=== PATIENT | female | born 2000 | race African-American/Black ===

== ENCOUNTER 2019-09-02 11:03 | Outpatient (RCR) | payer OTHER, SELFPAY ==
[2019-09-02 11:45] VITALS: BP 103/78; PULSE 92
== END 2019-12-01 23:59 | disposition home or self-care (01) ==
LOC: ANHOBOP 11:03
PROVIDERS: PCP Emergency Medicine; Visit Provider Obstetrics & Gynecology
DX: O36.8130 Decreased fetal movements, third trimester, not applicable or unspecified (principal); Z3A.32 32 weeks gestation of pregnancy
CPT/HCPCS: 59025

== ENCOUNTER 2020-04-25 23:18 | Emergency (ER) | payer OTHER, SELFPAY ==
--- NOTE | ~2020-04-25 | XR_ITS ---
EXAMINATION: XR chest 2V EXAM DATE: 04/26/2020 00:43 INDICATION: Chest pain and shortness of breath. TECHNIQUE: Frontal and lateral projections of the chest obtained and reviewed. Comparison is made to prior examination from 10/08/2017. FINDINGS: The lungs are clear. There are no pleural effusions. The cardiomediastinal silhouette is within normal limits. There is no pneumothorax suspected. The bones and soft tissues are unremarkab le. IMPRESSION: Normal chest x-ray exam. Reviewed, dictated and finalized at location A. IMPRESSION: Normal chest x-ray exam.
[2020-04-25 23:20] VITALS: BP 132/57; PULSE 71; RESP 19; TEMP 36.5; O2SAT 100
--- NOTE | 2020-04-25 23:32 | ECG_ITS ---
Measurements Intervals [place] Rate: 84 P: 56 OK: 160 QRS: 42 QRSD: 89 T: 35 QT: 368 QTc: 435 Interpretive Statements SINUS RHYTHM NORMAL ECG Electronically Signed On 04-26-2020 6:52:46 CDT by Keven Medina D.O.
[2020-04-25 23:33] VITALS: BP 132/72; PULSE 78; RESP 18; O2SAT 99
--- NOTE | 2020-04-26 00:02 | ED.CHESTPAIN ---
HPI - Chest Pain General Chief Complaint: Chest Pain Stated Complaint: chest pain Time Seen by Provider: 04/25/20 23:32 History of Present Illness HPI narrative: Sharp stabbing chest pain with mild SOB this evening. No fever, cough, palpitations. She says that she has never had chest pain before, but on review of her chart she has been seen here twice with similar complaints. Related Data Home Medications Medication Instructions Recorded Confirmed No Home Medications 04/25/20 04/25/20 Allergies Allergy/AdvReac Type Severity Reaction Status Date / Time No Known Allergies Allergy Verified 04/25/20 23:28 Review of Systems Review of Systems: All systems reviewed & are unremarkable except as noted in HPI and below Constitutional: Constitutional: Denies fever(s) ENT: Denies sore throat Cardiovascular: Cardiovascular: Reports chest pain Respiratory: Respiratory: Denies cough, Reports dyspnea and Denies wheezing Gastrointestinal: Gastrointestinal: Denies abdominal pain, Denies nausea and Denies vomiting Musculoskeletal: Musculoskeletal: Denies back pain Neurologic: Denies weakness PMFSH Social History Social History Gender identity (if verbalized by the patient): Female Exam Const: General: healthy appearing, no acute distress and alert Orientation/consciousness: patient oriented x3 HENMT: Head: normal to inspection Neck: Neck: normal visual inspection and no lymphadenopathy Chest: Chest palpation & inspection: no tenderness Resp: Effort & Inspection: normal respiratory effort Auscultation: clear to auscultation bilaterally, no rales, no rhonchi and no wheezes Cardio: Jugular venous distension: no JVD Rate: regular rate Rhythm: regular rhythm Heart sounds: no murmurs GI: Inspection: non-distended GI Palp: Yes Soft to palpation and No Tenderness to palpation present (GI) Skin: General skin exam: normal color Neuro: General: patient oriented x3 and moves all extremities Speech: normal speech Extrem: General: no edema Psych: Appearance: well kempt Affect: normal affect Course Vital Signs Vital signs: Vital Signs Temperature 36.5 C 04/25/20 23:20 Pulse Rate 71 04/25/20 23:20 Respiratory Rate 19 04/25/20 23:20 Blood Pressure 132/57 L 04/25/20 23:20 Pulse Oximetry 100 04/25/20 23:20 Temperature 36.5 C 04/25/20 23:20 Pulse Rate 78 04/26/20 01:08 Respiratory Rate 16 04/26/20 01:08 Blood Pressure 121/77 04/26/20 01:08 Pulse Oximetry 100 04/26/20 01:08 MDM - Chest Pain MDM Narrative Medical decision making narrative: Chest x-ray clear. EKG normal. Low risk for any serious cause of chest pain. vitals normal. Discharge Plan Discharge Clinical Impression: Atypical chest pain Patient Disposition: Home, Self-Care Condition: Stable Instructions: Chest Pain (ED) Prescriptions: No Action No Home Medications RF: 0 Follow-up/Referrals: Ricardo Horowitz MD [Primary Care Provider] - Discharge Date/Time: 04/26/20 01:20
[2020-04-26 01:08] VITALS: BP 121/77; PULSE 78; RESP 16; O2SAT 100
== END 2020-04-26 01:20 | disposition home or self-care (01) ==
PROVIDERS: Emergency Provider Emergency Medicine; PCP Emergency Medicine
DX: R07.89 Other chest pain (principal)
CPT/HCPCS: 71046; 93005; 99283

== ENCOUNTER 2020-09-07 00:08 | Emergency (ER) | payer OTHER, SELFPAY ==
--- NOTE | ~2020-09-07 | CT_ITS ---
EXAMINATION: CT abdomen pelvis w con DATE: 09/07/2020 02:37 INDICATION: Left upper abdominal pain. TECHNIQUE: Computed tomography (CT) of the abdomen and pelvis was performed with 100 mL Omnipaque 350 intravenous contrast. Automated exposure control and iterative reconstruction technique were employe d. The dose-length product was 1547.35 mGy-cm. COMPARISON: None. FINDINGS: The visualized portions of the lung bases are clear without pneumonia or pleural effusion. The heart size is normal. No pericardial effusion. The liver demonstrates focal steatosis adjacent to the falciform ligament. The spleen, pancreas, adrenal glands, and left kidney are normal. There is a 7 mm mass of fat in right kidney, consistent with an angiomyolipoma. There are no dilated loops of b owel. The appendix is normal. There are no pathologically enlarged lymph nodes. There is no free intr aperitoneal fluid. There is mild lumbar spondylosis. IMPRESSION: 1. No etiology for the patient's symptoms. Reviewed, dictated and finalized at location B. NTOLOGY AIDE
[2020-09-07 00:13] VITALS: BP 127/77; PULSE 89; RESP 20; TEMP 35.7; O2SAT 100
[2020-09-07 00:21] VITALS: BP 127/77; PULSE 89; RESP 20; TEMP 35.7; O2SAT 100
[2020-09-07 00:41] LABS: Basophils Percent Auto 0.4 % (0.2-1.2); Eosinophils Absolute Auto 0.1 K/mm3 (0-0.3); Eosinophils Percent Auto 1.3 % (0-4.4); Hematocrit 43.1 % (37.0-47.0); Hemoglobin 13.8 g/dL (12.0-15.0); Immature Granulocyte Absolute 0.02 K/mm3 (0.00-0.031); Immature Granulocyte Percent A 0.3 % (0-0.5); Lymphocytes Absolute Auto 3.23 K/mm3 (0.9-3.2); Lymphocytes Percent Auto 42.7 % (18.3-44.2); Mean Corpuscular Hemoglobin 29.2 pg (26-34); Mean Corpuscular Volume 91.3 fl (80-100); Mean Platelet Volume 8.6 fl (7.4-10.4); Monocytes Absolute Auto 0.5 K/mm3 (0.1-0.6); Monocytes Percent Auto 6.2 % (2.6-8.5); Neutrophils Absolute Auto 3.7 K/mm3 (1.3-6.7); Neutrophils Percent Auto 49.1 % (45.5-73.1); Platelet Count Result 331 k/mm3 (150-375); Red Blood Count 4.72 M/mm3 (4.2-5.4); Red Cell Distribution Width 11.8 % (11.5-14.5); White Blood Count 7.6 K/mm3 (4.5-10.0)
[2020-09-07 00:57] LABS: Alanine Aminotransferase 15 U/L (4-35); Albumin Level 4.2 g/dL (3.5-5.1); Alkaline Phosphatase 73 U/L (38-126); Anion Gap 6 mmol/L (8-16); Aspartate Amino Transferase 19 U/L (14-36); Bilirubin,Total 0.4 mg/dL (0.2-1.3); Blood Urea Nitrogen 10 mg/dL (7-17); Calcium 9.5 mg/dL (8.4-10.2); Carbon Dioxide 31 mmol/L (22-30); Chloride 104 mmol/L (98-107); Estimated CRCL calculation 133 ml/min; Estimated Glomerular Filt Rate > 60; Glucose 90 mg/dL (65-105); Lipase 30 U/L (23-300); Potassium 3.5 mmol/L (3.4-5.0); Sodium 141 mmol/L (137-145)
[2020-09-07 01:49] LABS: Add Urine Microscopic? YES; Appearance Urine Clear (Clear); Bacteria Urine Trace /hpf; Bilirubin Urine Negative (Negative); Blood Urine Negative (Negative); Color Urine Yellow (Yellow); Glucose Urine UA Negative (Negative); Ketones Urine Negative (Negative); Leukocyte Esterase Ur Negative LEU/UL (Negative); Mucus Urine Rare /lpf; Nitrate Urine Negative (Negative); Protein Urine 1+ mg/dL (Negative); RBC Urine 0-2 /hpf (0-2); Squamous Epithelial Cell Urine Many /hpf (Few); WBC Urine 0-3 /hpf
--- NOTE | 2020-09-07 01:51 | ED.ABDPAIN ---
HPI - Abdominal Pain General Chief Complaint: Abdominal Pain Stated Complaint: left abd pain Time Seen by Provider: 09/07/20 00:12 Source: patient Mode of arrival: ambulatory Limitations: no limitations History of Present Illness HPI narrative: This patient is a 20 year old female who presents for evaluation of left upper abdominal pain. She states this pain has been constant. She has not taken anything for her pain. She reports her pain feels like contractions occasionally. She denies urinary symptoms. She denies sob, cough or fever. She denies nausea, vomiting or diarrhea. Related Data Allergies Allergy/AdvReac Type Severity Reaction Status Date / Time No Known Allergies Allergy Verified 09/07/20 00:09 Review of Systems Review of Systems: All systems reviewed & are unremarkable except as noted in HPI and below PMFSH Past Medical History Medical History (Updated 09/07/20 @ 03:16 by Marizol Byrne MD) Patient denies medical problems Social History Social History (Updated 09/07/20 @ 02:45 by Marizol Byrne MD) Smoking status: Current every day smoker Gender identity (if verbalized by the patient): Female Exam Const: General: no acute distress and alert Nutritional Appearance: obese Orientation/consciousness: patient oriented x3 Eyes: EOM: EOMs intact bilaterally Resp: Effort & Inspection: normal respiratory effort and no use of accessory muscles Auscultation: clear to auscultation bilaterally Cardio: Rate: regular rate Rhythm: regular rhythm Heart sounds: no murmurs GI: GI Palp: Yes Soft to palpation, Yes Tenderness to palpation present (GI) and No Guarding due to palpation present (GI) Auscultation: normal bowel sounds Skin: General skin exam: normal color Rashes: no rashes Neuro: General: patient oriented x3 and moves all extremities Extrem: General: normal to inspection Course Reevaluation(s) Reevaluation #1: I discussed with patient that labs and CT were unremarkable. She has not complaints. Date: 09/07/20 Time: 03:14 Vital Signs Vital signs: Vital Signs Temperature 96.3 F L 09/07/20 00:13 Pulse Rate 89 09/07/20 00:13 Respiratory Rate 20 09/07/20 00:13 Blood Pressure 127/77 09/07/20 00:13 Pulse Oximetry 100 09/07/20 00:13 Temperature 97.5 F L 09/07/20 03:21 Pulse Rate 82 09/07/20 03:21 Respiratory Rate 16 09/07/20 03:21 Blood Pressure 124/79 09/07/20 03:21 Pulse Oximetry 100 09/07/20 03:21 MDM - Abdominal Pain Lab Data Attestation: I reviewed the patient's lab results. Result diagrams: 09/07/20 00:34 09/07/20 00:34 Labs: Lab Results 09/07/20 09/07/20 09/07/20 Range/Units 00:34 00:34 01:17 WBC 7.6 (4.5-10.0) K/mm3 RBC 4.72 (4.2-5.4) M/mm3 Hgb 13.8 (12.0-15.0) g/dL Hct 43.1 (37.0-47.0) % MCV 91.3 (80-100) fl MCH 29.2 (26-34) pg MCHC 32.0 (32-36) g/dl RDW 11.8 (11.5-14.5) % Plt Count 331 (150-375) k/mm3 MPV 8.6 (7.4-10.4) fl Immature Gran % (Auto) 0.3 (0-0.5) % Neut % (Auto) 49.1 (45.5-73.1) % Lymph % (Auto) 42.7 (18.3-44.2) % [place] % (Auto) 6.2 (2.6-8.5) % Eos % (Auto) 1.3 (0-4.4) % Baso % (Auto) 0.4 (0.2-1.2) % Lymph # (Auto) 3.23 H (0.9-3.2) K/mm3 [place] # (Auto) 0.5 (0.1-0.6) K/mm3 Eos # (Auto) 0.1 (0-0.3) K/mm3 Baso # (Auto) 0.0 (0.0-0.1) K/mm3 Abs Immat Gran (auto) 0.02 (0.00-0.031) K/mm3 Absolute Neuts (auto) 3.7 (1.3-6.7) K/mm3 Absolute Nucleated RBC 0.0 (0.0-0.012) K/mm3 Nucleated RBC % 0.0 (0.0-0.2) % Sodium 141 (137-145) mmol/L Potassium 3.5 (3.4-5.0) mmol/L Chloride 104 (98-107) mmol/L Carbon Dioxide 31 H (22-30) mmol/L Anion Gap 6 L (8-16) mmol/L BUN 10 (7-17) mg/dL Creatinine 0.80 (0.7-1.0) mg/dL Estim Creat Clear Calc 133 ml/min Estimated GFR > 60 (59 - ) Glucose 90 (65-105) mg/dL Calcium 9.5
[2020-09-07] MEDS: KETOROLAC 30 MG/ML VIAL (*BKC) IV PUSH (02:44)
[2020-09-07 03:21] VITALS: BP 124/79; PULSE 82; RESP 16; TEMP 36.4; O2SAT 100
== END 2020-09-07 03:23 | disposition home or self-care (01) ==
PROVIDERS: Emergency Provider General Practice; PCP Emergency Medicine
DX: R10.12 Left upper quadrant pain (principal); F17.200 Nicotine dependence, unspecified, uncomplicated
CPT/HCPCS: 36415; 74177; 80053; 81001; 81025; 83690; 85025; 96374; 99284; J1885; Q9967

== ENCOUNTER 2020-10-04 09:34 | Outpatient (CLI) | payer OTHER, SELFPAY ==
--- NOTE | ~2020-10-04 | XR_ITS ---
EXAMINATION: XR UGIAC wo kub DATE: 10/04/2020 10:46 INDICATION: Left flank pain. Abdomen pain. TECHNIQUE: Thick barium contrast with gas effervescent crystals were administered orally. Fluoroscop ic images of the esophagus, stomach, and proximal duodenum were obtained in various projections. The reafter, overhead images of the abdomen were performed. 1.1 minutes of fluroscopy. DAP 72. 63 images. FINDINGS: No prior studies for comparison. The esophagus is normal in caliber, without mucosal lesions or strictures. There is normal esophagea l peristalsis. There is no hiatal hernia. No gastroesophageal reflux witnessed during the course of the study. The gastric folds are normal. The proximal duodenum is also normal in appearance. IMPRESSION: 1. Normal upper GI study. Reviewed, dictated and finalized at location A. NSE TRAVEL ADMINISTRATOR IMPRESSION: 1. Normal upper GI study.
== END 2020-10-04 09:35 | disposition home or self-care (01) ==
PROVIDERS: PCP Emergency Medicine; Visit Provider Emergency Medicine
DX: R10.9 Unspecified abdominal pain (principal)
CPT/HCPCS: 74246

== ENCOUNTER 2020-11-08 19:14 | Emergency (ER) | payer OTHER, SELFPAY ==
--- NOTE | ~2020-11-08 | XR_ITS ---
EXAMINATION: XR elbow RT min 3V DATE: 11/08/2020 19:47 INDICATION: Generalized right elbow pain post fall TECHNIQUE: Anteroposterior, two oblique and lateral views of the right elbow were obtained. COMPARISON: None. FINDINGS: Alignment is normal. Subtle buckling of the cortex at the proximal radial head neck junction consiste nt with nondisplaced minimally impacted fracture. Joint spaces are normal. No evident joint effusion. Soft tissues are unremarkable. IMPRESSION: 1. Nondisplaced extra-articular fracture at the head neck junction of the proximal right radius. Reviewed, dictated and finalized at location A. ICE CASE MANAGER IMPRESSION: 1. Nondisplaced extra-articular fracture at the head neck junction of the proxi mal right radius.
[2020-11-08 19:29] VITALS: BP 165/86; PULSE 80; RESP 16; TEMP 36.6; O2SAT 99
--- NOTE | 2020-11-08 20:34 | ED.GENADULT ---
HPI - General Adult General Chief complaint: Extremity Injury, Upper Stated complaint: right elbow injury Time Seen by Provider: 11/08/20 19:17 Source: patient Mode of arrival: ambulatory Limitations: no limitations History of Present Illness HPI narrative: Patient presents with chief complaint of pain to the right elbow that began prior to arrival after slipping on ice in the [employer] parking lot and falling hitting the elbow. Patient denies any other areas of injury. Patient prior fractures. Related Data Allergies Allergy/AdvReac Type Severity Reaction Status Date / Time No Known Allergies Allergy Verified 09/07/20 00:09 Review of Systems Review of Systems: Narrative: CONSTITUTIONAL: Denies fever, chills, or sweats. EYES: Denies visual changes, redness, or discharge. ENT: Denies rhinorrhea, congestion, sore throat, or otalgia. CARDIOVASCULAR: Denies chest pain, palpitations, or edema. RESPIRATORY: Denies cough or dyspnea. GASTROINTESTINAL: Denies abdominal pain, nausea, vomiting, or diarrhea. GENITOURINARY: Denies dysuria or hematuria. SKIN: Denies rash or itching. MUSCULOSKELETAL: Reports right elbow pain denies back pain, joint pain, or myalgia. NEUROLOGIC: Denies headache, numbness, dizziness, or weakness. PSYCHIATRIC: Denies anxiety or depression. [facility] Past Medical History Medical History (Updated 11/08/20 @ 20:31 by Sharon Heath PA-C) Patient denies medical problems Social History Social History (Updated 09/07/20 @ 02:45 by Marizol Byrne MD) Smoking status: Current every day smoker Gender identity (if verbalized by the patient): Female Exam Narrative: Exam Narrative: GENERAL: Well-appearing, well-nourished, and in no acute distress. HEAD: Normocephalic, atraumatic. EYES: PERRLA and EOMI. NECK: Supple. No adenopathy or masses. CHEST: Clear to auscultation. No respiratory distress. No wheezes rales or rhonchi HEART: Regular rate and rhythm. EXTREMITIES: Patient is able to flex and extend the elbow but it is uncomfortable. Patient reports pain with supination and pronation. Patient has pain with palpation over the radial head. No lacerations, ecchymosis or erythema noted. Sensation and range of motion intact distally. Cap refill intact distally. No tenderness proximally or distally. SKIN: Warm, dry, no rash. NEURO: No focal deficits. Alert and oriented x3. PSYCH: Normal mood and affect. Course Vital Signs Vital signs: Vital Signs Temperature 98 F 11/08/20 19:29 Pulse Rate 80 11/08/20 19:29 Respiratory Rate 16 11/08/20 19:29 Blood Pressure 165/86 H 11/08/20 19:29 Pulse Oximetry 99 11/08/20 19:29 Temperature 98 F 11/08/20 19:29 Pulse Rate 80 11/08/20 19:29 Respiratory Rate 16 11/08/20 19:29 Blood Pressure 165/86 H 11/08/20 19:29 Pulse Oximetry 99 11/08/20 19:29 Procedures Orthopedic Splinting/Casting Injury #1: Side: right Upper Extremity Injury Location: elbow OCL: long arm Pre-Procedure Neuro Vascular Exam: normal Post-Procedure Neuro Vascular Exam: normal Other Orthopedic Equipment: other (Sling) Medical Decision Making MDM Narrative Medical decision making narrative: Discussed with patient the need to wear splint and follow-up with beauty specialist for further evaluation and management. 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 Patient's pain is minimal by limiting range of motion. Patient instructed to take Tylenol or Motrin for discomfort. Patient denies any other symptoms or concerns. Differential Diagnosis Differential Diagnosis: Fracture, sprain, strain Vital Signs Vital Signs: Vital Signs Temperature 98 F 11/08/20 19:29 Pulse Rate 80 11/08/20 19:29 Respiratory Rate 16 11/08/20 19:29 Blood Pressure 165/86 H 11/08/20 19:29 Pulse Oximetry 99 11/08/20 19:29 Temperature 98 F 11/08/20 19
[2020-11-08 21:13] VITALS: BP 143/76; PULSE 86; RESP 16; O2SAT 97
== END 2020-11-08 21:13 | disposition home or self-care (01) ==
PROVIDERS: Emergency Provider Emergency Medicine; PCP Emergency Medicine
DX: S52.124A Nondisplaced fracture of head of right radius, initial encounter for closed fracture (principal); W00.0XXA Fall on same level due to ice and snow, initial encounter
CPT/HCPCS: 29105; 73080; 99284; A4565

== ENCOUNTER 2021-01-17 11:36 | Emergency (ER) | payer OTHER, SELFPAY ==
[2021-01-17 11:42] VITALS: BP 115/53; PULSE 98; RESP 18; TEMP 37.2; O2SAT 99
--- NOTE | 2021-01-17 12:28 | ED.GENADULT ---
HPI - General Adult General Chief complaint: Upper Respiratory Infection Stated complaint: sinus infection/neg covid Time Seen by Provider: 01/17/21 12:24 History of Present Illness HPI narrative: Patient is a 20-year-old female who comes to the emergency room today complaining of a headache and chills. Patient reports that the last 3 days she has had a generalized constant headache that gets worse with loud noises. Admits to photophobia as well. Admits to having cold sweats, no known or documented fevers. Otherwise denies any sinus congestion, sore throat, cough. She admits to previous history of similar headaches but none this severe. She had a rapid COVID-19 test this morning and it was negative. Unknown if it is being sent off for culture or not. Denies any possibility of . No other medical conditions. Related Data Allergies Allergy/AdvReac Type Severity Reaction Status Date / Time No Known Allergies Allergy Verified 01/17/21 11:44 Review of Systems Constitutional: Constitutional: Reports as per HPI, Reports chills, Denies fever(s) and Denies weakness ENT: Reports as per HPI Cardiovascular: Cardiovascular: Denies chest pain, Denies edema, Denies leg edema, Denies dyspnea and Denies orthopnea Respiratory: Respiratory: Denies cough and Denies dyspnea Gastrointestinal: Gastrointestinal: Denies abdominal pain, Denies constipation, Denies diarrhea, Denies nausea and Denies vomiting Musculoskeletal: Musculoskeletal: Denies abnormal gait, Denies back pain, Denies numbness and Denies tingling Neurologic: Denies Abnormal speech present, Denies abnormal gait, Reports headache(s), Denies numbness, Denies tingling and Denies weakness Psychiatric: Psychiatric: Denies homicidal ideation and Denies suicidal ideation [facility] Past Medical History Medical History Patient denies medical problems Social History Social History Smoking status: Never smoker Alcohol intake: never Substance use type: does not use Gender identity (if verbalized by the patient): Female Exam Const: General: cooperative, healthy appearing, no acute distress, well developed, alert, awake and Physically active Orientation/consciousness: patient oriented x3 Other: Pleasant, cooperative, uncomfortable appearing HENMT: Head: normal to inspection, normocephalic and atraumatic Ears: external ears normal General nose exam: Normal external nose present Face and sinus: sinus tenderness and Facial tenderness on exam of face and sinuses Mouth: Yes Normal oral and palatal mucosa present Throat: posterior oropharynx normal Other: Tender to palpate over bilateral maxillary and frontal sinuses. Tender to palpate over entire head. Nasal mucosal edema bilaterally. Oropharynx is clear. Both TMs are clear. Mastoids are normal. Neck is nontender to palpate, full range of motion of C-spine in all planes. Eyes: General: appearance normal, both eyes and all related structures Conjunctivae: conjunctivae normal Pupils: Equal, round and reactive pupils present EOM: EOMs intact bilaterally Neck: Neck: normal visual inspection, full ROM, no lymphadenopathy and no meningeal signs Chest: Chest palpation & inspection: normal inspection of the chest and no tenderness Resp: Effort & Inspection: normal respiratory effort and able to speak in complete sentences Auscultation: clear to auscultation bilaterally Cardio: Rate: regular rate Rhythm: regular rhythm GI: Inspection: normal to inspection GI Palp: No abdominal tenderness : General: Yes no CVA tenderness Back/Spine/Pelvis: Back: no CVA tenderness Skin: General skin exam: normal color and no rashes or lesions noted Lesions: no lesions Neuro: General: patient oriented x3, tone normal, moves all extremities, no meningeal signs, no focal motor deficits and CN's II-XI intact bilaterally Crani
[2021-01-17 13:14] LABS: Basophils Percent Auto 0.2 % (0.2-1.2); Hematocrit 40.1 % (37.0-47.0); Hemoglobin 12.7 g/dL (12.0-15.0); Immature Granulocyte Absolute 0.03 K/mm3 (0.00-0.031); Immature Granulocyte Percent A 0.3 % (0-0.5); Lymphocytes Absolute Auto 1.11 K/mm3 (0.9-3.2); Lymphocytes Percent Auto 12.6 % (18.3-44.2); Mean Corpuscular HGB Conc 31.7 g/dl (32-36); Mean Corpuscular Hemoglobin 28.9 pg (26-34); Mean Corpuscular Volume 91.1 fl (80-100); Mean Platelet Volume 8.8 fl (7.4-10.4); Monocytes Absolute Auto 0.9 K/mm3 (0.1-0.6); Neutrophils Absolute Auto 6.8 K/mm3 (1.3-6.7); Neutrophils Percent Auto 76.9 % (45.5-73.1); Platelet Count Result 237 k/mm3 (150-375); Red Cell Distribution Width 11.8 % (11.5-14.5); White Blood Count 8.8 K/mm3 (4.5-10.0)
[2021-01-17] MEDS: KETOROLAC 15 MG/ML VIAL (*BKC) IV PUSH (13:18)
[2021-01-17] MEDS: diphenhydrAMINE HCl INJ 50 MG/ML VIAL 25 MG IV PUSH (13:18)
[2021-01-17] MEDS: METOCLOPRAMIDE HCL INJ 10 MG/2 ML VIAL IV PUSH (13:19)
[2021-01-17] MEDS: LACTATED RINGERS 1,000 ML 999 ML IV CONT (13:19)
[2021-01-17 13:21] LABS: Add Urine Microscopic? YES; Appearance Urine Cloudy (Clear); Bacteria Urine Trace /hpf; Bilirubin Urine Negative (Negative); Color Urine Yellow (Yellow); Glucose Urine UA Negative (Negative); Ketones Urine Negative (Negative); Leukocyte Esterase Ur 3+ LEU/UL (Negative); Mucus Urine Rare /lpf; Nitrate Urine Negative (Negative); Protein Urine 1+ mg/dL (Negative); Specific Grav Ur 1.016 (1.001-1.035); Squamous Epithelial Cell Urine Many /hpf (Few); Urobilinogen Urine Negative mg/dL (<2.0); WBC Urine >75 /hpf
[2021-01-17 13:22] LABS: Blood Urine Negative (Negative)
[2021-01-17 13:26] LABS: Alanine Aminotransferase 15 U/L (4-35); Alkaline Phosphatase 60 U/L (38-126); Anion Gap 7 mmol/L (8-16); Aspartate Amino Transferase 19 U/L (14-36); Bilirubin,Total 0.6 mg/dL (0.2-1.3); Blood Urea Nitrogen 6 mg/dL (7-17); Calcium 8.7 mg/dL (8.4-10.2); Carbon Dioxide 25 mmol/L (22-30); Chloride 104 mmol/L (98-107); Estimated Glomerular Filt Rate > 60; Glucose 100 mg/dL (65-105); Sodium 136 mmol/L (137-145)
[2021-01-17] MEDS: methylPREDNISolone SOD SUCC 125 MG VIAL IV PUSH (15:05)
[2021-01-17] MEDS: SODIUM CHLORIDE 0.9% IV 1,000 ML 50 ML (15:05)
[2021-01-17 15:06] VITALS: BP 108/61; PULSE 78; RESP 18; O2SAT 99
[2021-01-17 16:04] VITALS: BP 115/66; PULSE 91; RESP 18; O2SAT 98
== END 2021-01-17 16:07 | disposition home or self-care (01) ==
PROVIDERS: Physician Assistant Medical; Emergency Provider Emergency Medicine; PCP Emergency Medicine
DX: N39.0 Urinary tract infection, site not specified (principal); J32.9 Chronic sinusitis, unspecified; R51.9 Headache, unspecified
CPT/HCPCS: 36415; 80053; 81001; 81025; 85025; 87077; 87086; 87088; 96361; 96365; 96375; 99284; J0696; J1200; J1885; J2765; J2930; J7030; J7120

== ENCOUNTER 2021-01-18 15:12 | Emergency (ER) | payer OTHER, SELFPAY ==
[2021-01-18 15:25] VITALS: BP 138/90; PULSE 75; RESP 18; TEMP 36.2; O2SAT 98
--- NOTE | 2021-01-18 19:28 | ED.FEMALEGU ---
HPI - Female Genitourinary General Chief complaint: Urogenital-Female Stated complaint: vaginal itching/burning Time Seen by Provider: 01/18/21 17:59 Source: patient Mode of arrival: ambulatory Limitations: no limitations History of Present Illness HPI Narrative: This is a 20 year old female that presents to the ER for vaginal irritation x 1 week. Reports painful lesions on the vulva. Reports burning to the area. She was seen here yesterday and diagnosed with a urinary tract infection, but did not mention the lesions on her vulva. She is being treated with keflex. Reports dysuria. Denies fever, or hematuria. Related Data Home Medications Medication Instructions Recorded Confirmed cephalexin 01/18/21 01/18/21 cetirizine mg 01/18/21 fluticasone propionate INTRANASAL 01/18/21 Allergies Allergy/AdvReac Type Severity Reaction Status Date / Time No Known Allergies Allergy Verified 01/18/21 18:10 Review of Systems Review of Systems: Narrative: CONSTITUTIONAL: Denies fever GASTROINTESTINAL: Denies abdominal pain, nausea, vomiting GENITOURINARY: Reports dysuria. Denies hematuria. SKIN: Reports rash and itching. All systems reviewed & are unremarkable except as noted in HPI and below PMFSH Past Medical History Medical History (Updated 01/18/21 @ 20:10 by Katey Angulo PA-C) No active medical problems Social History Social History (Updated 01/18/21 @ 19:32 by Katey Angulo PA-C) Substance use: never Gender identity (if verbalized by the patient): Female Exam Narrative: Exam Narrative: GENERAL: Well-appearing, well-nourished, and in no acute distress. HEAD: Normocephalic, atraumatic. EYES: EOMI. EXTREMITIES: Normal range of motion. No edema. SKIN: Warm, dry, no rash. NEURO: No focal deficits. Alert and oriented x3. PSYCH: Normal mood and affect PELVIC: Vulva with multiple ulcerations on an erythematous base. Normal-appearing cervix. Small amount of white discharge in the vaginal vault Course Vital Signs Vital signs: Vital Signs Temperature 97.2 F L 01/18/21 15:25 Pulse Rate 75 01/18/21 15:25 Respiratory Rate 18 01/18/21 15:25 Blood Pressure 138/90 01/18/21 15:25 Pulse Oximetry 98 01/18/21 15:25 Temperature 97.2 F L 01/18/21 15:25 Pulse Rate 75 01/18/21 15:25 Respiratory Rate 18 01/18/21 15:25 Blood Pressure 138/90 01/18/21 15:25 Pulse Oximetry 98 01/18/21 15:25 MDM - Female Genitourinary MDM Narrative Medical decision making narrative: Patient presents to the emergency department for vulvovaginal irritation over the last week. Exam is consistent with herpes flare. She was seen here yesterday, I reviewed her UA. Her bedside test was negative at that time. Trichomonas is negative today. Chlamydia and gonorrhea were sent. She would like to be presumptively treated for these. Will also be treated for possible herpes flare. She will be given gynecology for follow-up. She was given warnings to return to the ER Lab Data Attestation: I reviewed the patient's lab results. Labs: Lab Results 01/18/21 01/18/21 Range/Units 19:25 19:25 C.trachomatis RNA (TMA) Pending Herpes Simplex Culture Pending N.gonorrhoeae RNA (TMA) Pending Trichomonas Direct ID Negative (Negative) Urine Characteristics Cloudy Critical Care Time Critical Care Time Critical Care Time: No Discharge Plan Discharge Clinical Impression: Concern about STD in female without diagnosis Patient Disposition: Home, Self-Care Condition: Stable Instructions: Antibiotic Form, Genital Herpes Simplex (ED), Sexually Transmitted Diseases (ED), Safe Sex Practices (ED) Additional Instructions: Return to the ER if you experience fever, abdominal pain with nausea and vomiting, you are unable to keep down liquids or solids, blood in the urine or any other symptoms that are concerning to you Rem
[2021-01-18] MEDS: FLUCONAZOLE 150 MG TABLET PO (21:17)
[2021-01-18] MEDS: cefTRIAXone 250 MG VIAL 500 MG IM (21:17)
[2021-01-18 21:22] VITALS: BP 131/97; PULSE 90; RESP 16; TEMP 37.1; O2SAT 100
== END 2021-01-18 21:23 | disposition home or self-care (01) ==
PROVIDERS: Physician Assistant; Emergency Provider Emergency Medicine; PCP Emergency Medicine
DX: N89.8 Other specified noninflammatory disorders of vagina (principal); N39.0 Urinary tract infection, site not specified
CPT/HCPCS: 87070; 87255; 87491; 87591; 87808; 96372; 99284; A9270; J0696

== ENCOUNTER 2021-01-19 14:54 | Outpatient (CLI) | payer OTHER, SELFPAY ==
[2021-01-19 16:13] LABS: HIV 1/2 Ab P24 Ag Result Negative (Negative)
[2021-01-19 16:53] LABS: Hepatitis B Surface Antigen Negative (Negative)
[2021-01-22 11:36] LABS: Rapid Plasma Reagin Non-Reactive (NonReactive)
[2021-01-24 18:16] LABS: HSV 1 IgM Screen Negative (Negative); HSV 2 IgM Screen Negative (Negative)
== END 2021-01-19 14:55 | disposition home or self-care (01) ==
LOC: ANHLAB 14:56
PROVIDERS: PCP Emergency Medicine; Visit Provider Obstetrics & Gynecology
DX: Z11.3 Encounter for screening for infections with a predominantly sexual mode of transmission (principal)
CPT/HCPCS: 36415; 86592; 86695; 86696; 86703; 87340; G0432

== ENCOUNTER 2021-01-29 20:11 | Emergency (ER) | payer OTHER, SELFPAY ==
--- NOTE | ~2021-01-29 | XR_ITS ---
EXAMINATION: XR ankle RT min 3V DATE: 01/29/2021 20:27 INDICATION: Right ankle pain and swelling. TECHNIQUE: 4 views of right ankle were obtained. COMPARISON: None. FINDINGS: Bone alignment is normal. No fracture. Joint spaces are normal. There is ankle soft tissue swelling. IMPRESSION: 1. No fracture. Reviewed, dictated and finalized at location A. IMPRESSION: 1. No fracture.
[2021-01-29 20:13] VITALS: BP 140/83; PULSE 92; RESP 18; TEMP 36.6; O2SAT 97
--- NOTE | 2021-01-29 21:51 | ED.LOWEXIN ---
HPI - Extremity Injury (Lower) General Chief Complaint: Extremity Injury, Lower Stated Complaint: right ankle injury Time Seen by Provider: 01/29/21 21:27 Source: patient Mode of arrival: ambulatory Limitations: no limitations History of Present Illness HPI Narrative: 20 years old -Russian female missed a step at 9 AM complaining of right ankle pain. Patient denies other injuries. Related Data Allergies Allergy/AdvReac Type Severity Reaction Status Date / Time No Known Allergies Allergy Verified 01/26/21 15:12 Review of Systems Review of Systems: Narrative: CONSTITUTIONAL: Denies fever, chills, or sweats. EYES: Denies visual changes, redness, or discharge. ENT: Denies rhinorrhea, congestion, sore throat, or otalgia. CARDIOVASCULAR: Denies chest pain, palpitations, or edema. RESPIRATORY: Denies cough or dyspnea. GASTROINTESTINAL: Denies abdominal pain, nausea, vomiting, or diarrhea. GENITOURINARY: Denies dysuria or hematuria. SKIN: Denies rash or itching. MUSCULOSKELETAL: Denies back pain, joint pain, or myalgia. NEUROLOGIC: Denies headache, numbness, or weakness. PSYCHIATRIC: Denies anxiety or depression. PMFSH Past Medical History Medical History Herpes simplex type 1 infection History of vaginal delivery Surgical History Surgical History [place] teeth removed Family History Family History Father Depression Mother Diabetes mellitus Grandparent No problems noted. Social History Social History Smoking status: Never smoker Alcohol intake: never Substance use: never Substance use type: does not use Gender identity (if verbalized by the patient): Female Exam Narrative: Exam Narrative: General appearance: Well-developed, well-nourished Skin: Normal color Chest and respiratory: Airway patent, no respiratory distress, no accessory muscle use Heart: Regular rate/rhythm Vascular: Normal peripheral pulses, normal capillary refill. Musculoskeletal: Mild diffuse tenderness of the right ankle, no swelling, no bruises, no deformity, slight limited range of motion Neurologic: [employer] is normal as tested, no gross motor deficit Course Course Emergency Course: Stable Vital Signs Vital signs: Vital Signs Temperature 36.6 C 01/29/21 20:13 Pulse Rate 92 01/29/21 20:13 Respiratory Rate 18 01/29/21 20:13 Blood Pressure 140/83 01/29/21 20:13 Pulse Oximetry 97 01/29/21 20:13 Temperature 36.6 C 01/29/21 20:13 Pulse Rate 92 01/29/21 20:13 Respiratory Rate 18 01/29/21 20:13 Blood Pressure 140/83 01/29/21 20:13 Pulse Oximetry 97 01/29/21 20:13 MDM - Extremity Injury (Lower) MDM Narrative Medical decision making narrative: Right ankle sprain/strain is my concern, x-ray ordered Differential Diagnosis Differential diagnosis: Likely ankle sprain and strain and ankle fracture Critical Care Time Critical Care Time Critical Care Time: No Discharge Plan Discharge Clinical Impression: Ankle sprain and strain Patient Disposition: Home, Self-Care Condition: Stable Instructions: Ankle Sprain (DC) Additional Instructions: Discharge instructions, ice pack 20 minutes/h for the next 24 hours, keep right foot elevated, do not put weight on the right foot. Crutches. Ibuprofen 600 every 6 hours, Tylenol 650 mg every 6 hours as needed, off work for 3 days Prescriptions: No Action fluticasone propionate 50 mcg/actuation spray,suspension 1 spray intranasal DAILY PRN (Efren
== END 2021-01-29 22:16 | disposition home or self-care (01) ==
PROVIDERS: Emergency Provider Emergency Medicine; PCP Emergency Medicine
DX: S93.401A Sprain of unspecified ligament of right ankle, initial encounter (principal); S96.911A Strain of unspecified muscle and tendon at ankle and foot level, right foot, initial encounter; X50.9XXA Other and unspecified overexertion or strenuous movements or postures, initial encounter
CPT/HCPCS: 73610; 99283

== ENCOUNTER 2021-03-10 21:58 | Emergency (ER) | payer OTHER, SELFPAY ==
[2021-03-10 22:07] VITALS: BP 126/77; PULSE 94; RESP 20; TEMP 36.8; O2SAT 97
--- NOTE | 2021-03-10 23:03 | ED.GENADULT ---
HPI - General Adult General Chief complaint: Unspecified Stated complaint: sore throat Time Seen by Provider: 03/10/21 22:52 History of Present Illness HPI narrative: Sore throat for the past 2 days. Severe pain with swallowing. No fever, chills, SOB, cough congestion. Recently started treatedment for genital herpes. Her daughter also recently recovered from a sore thoat. Related Data Home Medications Medication Instructions Recorded Confirmed acyclovir 400 mg tablet 400 mg PO DAILY 03/05/21 03/05/21 Allergies Allergy/AdvReac Type Severity Reaction Status Date / Time valacyclovir Allergy Intermediate Unknown Verified 03/05/21 10:57 Review of Systems Review of Systems: All systems reviewed & are unremarkable except as noted in HPI and below Constitutional: Constitutional: Denies body ache(s), Denies fatigue and Denies fever(s) Eyes: Eyes: Reports no additional eye complaints ENT: Reports as per HPI Cardiovascular: Cardiovascular: Denies chest pain Respiratory: Respiratory: Denies cough and Denies dyspnea Gastrointestinal: Gastrointestinal: Denies abdominal pain, Denies nausea and Denies vomiting Musculoskeletal: Musculoskeletal: Denies myalgias Integumentary/Breasts: Skin/Breast: Denies rash Neurologic: Reports system reviewed and no additional complaints, except as documented PMFSH Past Medical History Medical History Herpes simplex type 1 infection History of vaginal delivery Surgical History Surgical History [place] teeth removed Family History Family History Father Depression Mother Diabetes mellitus Grandparent No problems noted. Social History Social History Smoking status: Never smoker Alcohol intake: never Substance use: never Substance use type: does not use Gender identity (if verbalized by the patient): Female Exam Const: General: healthy appearing, no acute distress and alert Orientation/consciousness: patient oriented x3 HENMT: Head: normal to inspection Throat: uvula midline and posterior oropharynx abnormal cobblestoning, erythema and other (small ulcers) Neck: Neck: normal visual inspection and lymphadenopathy Chest: Chest palpation & inspection: no tenderness Resp: Effort & Inspection: normal respiratory effort Auscultation: clear to auscultation bilaterally, no rales, no rhonchi and no wheezes Cardio: Jugular venous distension: no JVD Rate: regular rate Rhythm: regular rhythm Heart sounds: no murmurs Skin: General skin exam: normal color Neuro: General: patient oriented x3 and moves all extremities Speech: normal speech Extrem: General: no edema Psych: Appearance: well kempt Affect: normal affect Course Vital Signs Vital signs: Vital Signs Temperature 36.8 C 03/10/21 22:07 Pulse Rate 94 03/10/21 22:07 Respiratory Rate 20 03/10/21 22:07 Blood Pressure 126/77 03/10/21 22:07 Pulse Oximetry 97 03/10/21 22:07 Temperature 36.8 C 03/10/21 22:07 Pulse Rate 94 03/10/21 22:07 Respiratory Rate 20 03/10/21 22:07 Blood Pressure 126/77 03/10/21 22:07 Pulse Oximetry 97 03/10/21 22:07 Medical Decision Making MDM Narrative Medical decision making narrative: most likely viral pharyngitis. Could be HSV, but already on treatment, so unlikely. Will treat symptomatically. Medical Records Medical records reviewed: Yes I reviewed the external patient's medical records. Vital Signs Vital Signs: Vital Signs Temperature 36.8 C 03/10/21 22:07 Pulse Rate 94 03/10/21 22:07 Respiratory Rate 20 03/10/21 22:07 Blood Pressure 126/77 03/10/21 22:07 Pulse Oximetry 97 03/10/21 22:07 Temperature 36.8 C 03/10/21 22:07 Pulse Rate 94 03/10/21 22:07 Respiratory Rate 2
[2021-03-10] MEDS: DEXAMETHASONE SOD PHOS INJ 4 MG/ML VIAL 10 MG IM (23:47)
== END 2021-03-10 23:53 | disposition home or self-care (01) ==
PROVIDERS: Emergency Provider Emergency Medicine; PCP Emergency Medicine
DX: J02.9 Acute pharyngitis, unspecified (principal); A60.00 Herpesviral infection of urogenital system, unspecified
CPT/HCPCS: 87081; 87880; 96372; 99283; J1100

== ENCOUNTER 2022-02-04 09:30 | Outpatient (RCR) | payer OTHER, SELFPAY ==
--- NOTE | 2022-01-03 17:27 | PTOPEVAL ---
PHYSICAL THERAPY EVALUATION and PLAN OF CARE Thank you for referring Cesar Drake to [facility].? The patient is scheduled to be seen for pelvic floor physical therapy? 1x/month for 2months. Please review, sign, date and return this plan of care JAMAL. I agree with and certify that the following plan of care is medically necessary. Referring Physician Date Attending Provider: Josselin Choi MD Evaluation Diagnosis uterovaginal prolapse Onset 3months Subjective Information States that she was diagnosed Query Text:As Reported By Patient/ with stage 2 urterine prolapse Family . She reports some pain in the vaginal region after intercourse - but that has not happened in a long time. Lumbar ROM Reason Not Measured WNL/Left,WNL/Right Lumbar Comments some tightness noted with lumbar flexion Lower Extremity Muscle Strength Testing Hip Strength Left Hip Flexion Strength 4+ Good + Hip Extension Strength 4- Good - Hip Abduction Strength 4- Good - Right Hip Flexion Strength 4- Good - Hip Extension Strength 3 Fair Hip Abduction Strength 3 Fair Knee Strength Bilateral Knee Flexion Strength 5 Normal Knee Extension Strength 5 Normal Muscle Length Testing Muscle Length Testing Piriformis w/Hip Flexion >90 Degrees (R) Moderate Tightness,(L) Moderate Tightness Muscle Length Testing Comments hyperlaxity noted to knee joints Posture Posture Standing Position Lumbar Spine Posture Increased Lordosis Pelvis Posture Anteriorly Tilted Hip Posture (L) Internally Rotated,(R) Internally Rotated Knee Posture (L) Genu Valgus,(R) Genu Valgus Pelvic Health Evaluation Current/Past Medical History Prior Function has a 2 year old with vaginal delivery; recently had UTI that she feels is now over and she is done with antibiotics. History Prolapse Number of Vaginal Deliveries 1 Number of C-Sections 0 Daytime Frequency 7 Nighttime Frequency 0 Pelvic Floor Assessment Permission Received for External/ Yes: external through clothing Internal Perineal Exam External Perineal Body Mobility Present Voluntary External Perineal Body Mobility Present Involuntary Sustained Levator Ani Strength 4seconds x7reps Pelvic Health Therapy Pelvic Health Exercise Isolated
--- NOTE | 2022-02-04 10:12 | PCPTNOTE ---
Patient did not show up for scheduled appointment this date.
--- NOTE | 2022-03-04 10:46 | PCPTNOTE ---
PHYSICAL THERAPY DISCHARGE NOTE Attending Provider: Josselin hCoi MD Patient:Cesar Drake Date of :2000 Patient has not returned for any further treatments since 02/04/2022, therefore she will be discharged at this time. Patient?s initial visit was on 01/03/2022 and had a total of 1 visit. Thank you for referring this patient to [facility]. Please review, sign, date and return this discharge summary JAMAL. I have been updated about the patient's current status and I agree with discharge from the above service at this time. Referring Physician Date
== END 2022-03-05 14:39 | disposition home or self-care (01) ==
LOC: ANHPT 09:30
PROVIDERS: Visit Provider Obstetrics & Gynecology
DX: N81.4 Uterovaginal prolapse, unspecified (principal)
CPT/HCPCS: 97112; 97162; 97530

== ENCOUNTER 2022-06-24 15:33 | Emergency (ER) | payer OTHER, SELFPAY ==
[2022-06-24 15:48] VITALS: BP 115/72; PULSE 82; RESP 18; TEMP 36.4; O2SAT 100
--- NOTE | 2022-06-24 16:19 | ED.EAR ---
HPI - Ear Problem General Chief complaint: Ear Stated complaint: lt ear pain Time Seen by Provider: 06/24/22 16:19 Source: patient Mode of arrival: ambulatory Limitations: no limitations History of Present Illness HPI Narrative: 22-year-old female presented for complaint of left ear pain for 4 days. She states the ear is muffled and endorses burning sensation when swallowing. Also states the ear is tender to touch. She denies drainage, tinnitus, dizziness, headache, nausea, vomiting, fevers or chills. She is 7approx weeks . Complaint: ear pain Related Data Allergies Allergy/AdvReac Type Severity Reaction Status Date / Time valacyclovir Allergy Intermediate Hives Verified 06/24/22 16:15 Review of Systems Review of Systems: CONSTITUTIONAL: Denies malaise, chills, or fever. EYES: Denies visual changes, redness, or discharge. ENT: Denies rhinorrhea, congestion, sinus pain, and sore throat. Reports ear pain CARDIOVASCULAR: Denies chest pain, palpitations, or edema. RESPIRATORY: Denies cough or dyspnea. GASTROINTESTINAL: Denies abdominal pain, nausea, vomiting, diarrhea SKIN: Denies rash or itching. MUSCULOSKELETAL: Denies myalgia. NEUROLOGIC: Denies headache. All systems reviewed & are unremarkable except as noted in HPI and below PMFSH Past Medical History Medical History Herpes simplex type 1 infection History of vaginal delivery Surgical History Surgical History [place] teeth removed Family History Family History Father Depression Mother Diabetes mellitus Grandparent No problems noted. Social History Social History Smoking status: Never smoker Alcohol intake: never Substance use: never Substance use type: does not use Gender identity (if verbalized by the patient): Female Comments At time of signature, agree with nursing past medical, surgical, social and family history. There is no relevant family history pertinent to the presenting complaint Exam Narrative: GENERAL: Well-appearing EYES: PERRLA, conjunctivae clear ENT: Nares clear. Mucous membranes moist. Right TM pearly murphy with normal light reflex; Left canal erythematous and stenotic with bulging/red TM; no tragal tenderness. Oropharynx not erythematous without lesions. CHEST: Clear to auscultation, breath sounds equal. HEART: Regular rate and rhythm. No murmur heard. SKIN: Warm, dry, no rash. NEURO: Alert and oriented x3. Course Course Emergency Course: Patient is aware of diagnosis, understands and agrees to treatment plan. Anticipatory guidance given. Patient agrees to follow-up as directed and is aware of reasons to seek care at the emergency department. Portions of this record may have been created with voice recognition software Level of Care: Express Care Visit Vital Signs Vital signs: Vital Signs Temperature 97.6 F 06/24/22 15:48 Pulse Rate 82 06/24/22 15:48 Respiratory Rate 18 06/24/22 15:48 Blood Pressure 115/72 06/24/22 15:48 Pulse Oximetry 100 06/24/22 15:48 Oxygen Delivery Room Air 06/24/22 15:48 Temperature 97.6 F 06/24/22 15:48 Pulse Rate 82 06/24/22 15:48 Respiratory Rate 18 06/24/22 15:48 Blood Pressure 115/72 06/24/22 15:48 Pulse Oximetry 100 06/24/22 15:48 Oxygen Delivery Room Air 06/24/22 15:48 Reviewed Medical Decision Making MDM Narrative Medical decision making narrative: Advised supportive measures and signs/symptoms to go to the ER. She is aware of tylenol only for pain while . Pt is appropriate for outpt treatment and f/u. Differential Diagnosis Differential Diagnosis: Coronavirus, strep pharyngitis, allergic rhinitis, upper respiratory tract infection, sinusitis, rhinosinusitis, nasopharyngitis, jennifer
== END 2022-06-24 16:37 | disposition home or self-care (01) ==
PROVIDERS: Emergency Provider Nurse Practitioner Family; PCP Emergency Medicine
DX: H66.92 Otitis media, unspecified, left ear (principal)
CPT/HCPCS: 99213; G0463

== ENCOUNTER 2022-07-16 12:58 | Outpatient (CLI) | payer OTHER, SELFPAY ==
--- NOTE | ~2022-07-16 | US_ITS ---
EXAMINATION: US OB <= 14 weeks fetus DATE: 07/16/2022 13:22 INDICATION: First trimester dating TECHNIQUE: Real-time pelvic transabdominal and transvaginal ultrasound was performed. COMPARISON: None. FINDINGS: The uterus measures 12.6 x 7.5 x 5.6 cm. There is an intrauterine gestational sac. There i s a 2.1 x 2.5 x 1.4 cm hypoechoic area adjacent to the gestational sac. A yolk sac is identified. Fet al heart motion is identified measuring 173 beats per minute (bpm) by M-mode Doppler. The crown rump length measures 1.7 cm, which correlates with an estimated gestational age of 8 weeks and 0 day (s) (+/-) 5 day(s). The ovaries are not visualized however no adnexal abnormality is seen. There is no free fluid in the pelvis. IMPRESSION: 1. Live intrauterine with an estimated gestational age of 8 weeks and 0 day(s) (+/-) 5 day( s) and an estimated delivery date of 02/25/2023. 2. Small subchorionic hematoma. Reviewed, dictated and finalized at location A. IMPRESSION: 1. Live intrauterine with an estimated gestational age of 8 weeks and 0 day(s) (+/-) 5 day(s) and an estimated delivery date of 02/25/2023. 2. Small subchorionic hematoma.
== END 2022-07-16 12:59 | disposition home or self-care (01) ==
PROVIDERS: PCP Emergency Medicine; Visit Provider Obstetrics & Gynecology
DX: O36.80X0 Pregnancy with inconclusive fetal viability, not applicable or unspecified (principal); Z3A.08 8 weeks gestation of pregnancy
CPT/HCPCS: 76801

== ENCOUNTER 2022-10-08 10:46 | Outpatient (CLI) | payer OTHER, SELFPAY ==
[2022-10-08 12:45] LABS: Hemoglobin A1C 4.1 % (<5.7)
== END 2022-10-08 10:47 | disposition home or self-care (01) ==
LOC: ANHLAB 10:47
PROVIDERS: PCP Emergency Medicine; Visit Provider Obstetrics & Gynecology
DX: Z34.90 Encounter for supervision of normal pregnancy, unspecified, unspecified trimester (principal); Z3A.00 Weeks of gestation of pregnancy not specified
CPT/HCPCS: 36415; 83036

== ENCOUNTER 2023-01-09 10:09 | Outpatient (CLI) | payer OTHER, SELFPAY ==
--- NOTE | ~2023-01-09 | US_ITS ---
EXAMINATION: US OB BPP wo non-stress DATE: 01/09/2023 11:20 CDT INDICATION: Obesity complicating . TECHNIQUE: Real-time transabdominal obstetric ultrasound. FINDINGS: Comparison dated 07/16/2022 There is a single living fetus in vertex presentation. The placenta is posterior without placenta pr evia. cardiac activity and movement is noted with a heart rate of 131 beats per minute. Biophysical profile: breathin of 2 movement: 2 of 2 tone: 2 of 2 Amniotic flud pocket: 2 of 2 Total score: 8 of 8 IMPRESSION: 1. Single living intrauterine in vertex presentation. 2: Total biophysical profile score of 8/8. Reviewed, dictated and finalized at location L.
== END 2023-01-09 10:10 | disposition home or self-care (01) ==
PROVIDERS: PCP Emergency Medicine; Visit Provider Obstetrics & Gynecology
DX: O99.210 Obesity complicating pregnancy, unspecified trimester (principal); Z3A.00 Weeks of gestation of pregnancy not specified
CPT/HCPCS: 76819

== ENCOUNTER 2023-02-16 21:39 | Outpatient (RCR) | payer OTHER, SELFPAY ==
[2022-11-25 00:43] VITALS: BP 116/61; PULSE 92
[2023-02-04 12:42] VITALS: BP 111/62; PULSE 77
[2023-02-11 13:45] VITALS: BP 121/86; PULSE 89
--- NOTE | ~2023-02-16 | US_ITS ---
EXAMINATION: US OB limited DATE: 02/11/2023 13:25 INDICATION: Decreased movement. Third trimester. TECHNIQUE: Real-time ultrasound of the pelvis was performed. COMPARISON: Ultrasound 02/04/2023 FINDINGS: There is a single fetus in vertex presentation. The placenta is fundal. heart rate is 134 beat s per minute (bpm). The amniotic fluid index is 12.1 cm, which is normal. IMPRESSION: 1. Single living fetus in vertex presentation. 2. Normal amniotic fluid index. Reviewed, dictated and finalized at location A.
--- NOTE | ~2023-02-16 | US_ITS ---
EXAMINATION: US OB BPP wo non-stress DATE: 02/04/2023 12:50 CDT INDICATION: Large for gestational age. TECHNIQUE: Real-time transabdominal obstetric ultrasound. FINDINGS: 01/09/2023 There is a single living fetus in vertex presentation. The placenta is posterior lateral without josé miguel centa previa. cardiac activity and movement is noted with a heart rate of 127 beats per minute. Biophysical profile: breathin of 2 movement: 2 of 2 tone: 2 of 2 Amniotic flud pocket: 2 of 2 Total score: 8 of 8 IMPRESSION: 1. Single living intrauterine in vertex presentation. 2: Total biophysical profile score of 8/8. Reviewed, dictated and finalized at location L.
[2023-02-16 22:20] VITALS: BP 119/59; PULSE 89
--- NOTE | 2023-02-16 22:55 | PC.NURSE ---
called Dr. Choi notified pt visit for DFM. reactive NST and pt now feeling baby movement. okay for discharge
== END 2023-02-22 23:59 | disposition home or self-care (01) ==
LOC: ANHOBOP 21:39
PROVIDERS: PCP Emergency Medicine; Visit Provider Obstetrics & Gynecology
DX: O36.8130 Decreased fetal movements, third trimester, not applicable or unspecified (principal); Z3A.27 27 weeks gestation of pregnancy; Z3A.37 37 weeks gestation of pregnancy; O26.03 Excessive weight gain in pregnancy, third trimester; Z3A.38 38 weeks gestation of pregnancy
CPT/HCPCS: 36415; 59025; 76815; 76819; 86900; 86901; J2274

== ENCOUNTER 2023-02-17 16:06 | Inpatient (IN) | payer OTHER, SELFPAY ==
[2023-02-17] VITALS (44 sets, daily range): BP systolic 104–153; BP diastolic 44–129; PULSE 55–122; TEMP 36.6; O2SAT 83–100; BMI 50.2
[2023-02-17 16:49] LABS: Basophils Percent Auto 0.3 % (0.2-1.2); Eosinophils Absolute Auto 0.1 K/mm3 (0-0.3); Eosinophils Percent Auto 1.6 % (0-4.4); Hematocrit 34.2 % (37.0-47.0); Hemoglobin 11.1 g/dL (12.0-15.0); Immature Granulocyte Absolute 0.02 K/mm3 (0.00-0.031); Immature Granulocyte Percent A 0.3 % (0-0.5); Lymphocytes Absolute Auto 1.94 K/mm3 (0.9-3.2); Lymphocytes Percent Auto 28.7 % (18.3-44.2); Mean Corpuscular HGB Conc 32.5 g/dl (32-36); Mean Corpuscular Hemoglobin 31.4 pg (26-34); Mean Corpuscular Volume 96.9 fl (80-100); Mean Platelet Volume 9.1 fl (7.4-10.4); Monocytes Absolute Auto 0.5 K/mm3 (0.1-0.6); Monocytes Percent Auto 7.9 % (2.6-8.5); Neutrophils Absolute Auto 4.1 K/mm3 (1.3-6.7); Neutrophils Percent Auto 61.2 % (45.5-73.1); Platelet Count Result 250 k/mm3 (150-375); Red Blood Count 3.53 M/mm3 (4.2-5.4); Red Cell Distribution Width 12.6 % (11.5-14.5); White Blood Count 6.8 K/mm3 (4.5-10.0)
[2023-02-17] MEDS: DINOPROSTONE 10 MG VAG INSERT VAGINAL (16:59)
--- NOTE | 2023-02-17 17:03 | WPDANESEPPF ---
Anes - Initial Pre Proc Eval Procedure: Labor epidural Date/Time: 02/17/23 17:03 Surgeon: Elroy George MD Pre Op Diagnosis: Abdominal pain with contractions Pre Op Diagnosis: IOL Patient Data Age: 23 Gender: F Height: Weight: Last Vital Signs Pulse 98 02/17/23 17:01 BP 132/44 L 02/17/23 17:01 Allergies Allergy/AdvReac Type Severity Reaction Status Date / Time valacyclovir Allergy Intermediate Hives Verified 02/11/23 10:42 Home Medications Medication Instructions Recorded Confirmed Type acyclovir 400 mg tablet 400 mg PO DAILY 07/08/22 02/11/23 History calcium carbonate 200 mg calcium 200 mg PO BID 07/08/22 02/11/23 History (500 mg) chewable tablet (Tums) vit 67-iron ps 29 mg 1 cap PO DAILY #90 caps 08/06/22 02/11/23 Rx iron-folate no.1 1 mg-dha 200 mg capsule (Vitafol Ultra) Laboratory Tests 02/17/23 16:21 WBC 6.8 K/mm3 (4.5-10.0) RBC 3.53 L M/mm3 (4.2-5.4) Hgb 11.1 L g/dL (12.0-15.0) Hct 34.2 L % (37.0-47.0) MCV 96.9 fl (80-100) MCH 31.4 pg (26-34) MCHC 32.5 g/dl (32-36) RDW 12.6 % (11.5-14.5) Plt Count 250 k/mm3 (150-375) MPV 9.1 fl (7.4-10.4) Immature Gran % (Auto) 0.3 % (0-0.5) Neut % (Auto) 61.2 % (45.5-73.1) Lymph % (Auto) 28.7 % (18.3-44.2) Glenn % (Auto) 7.9 % (2.6-8.5) Eos % (Auto) 1.6 % (0-4.4) Baso % (Auto) 0.3 % (0.2-1.2) Lymph # (Auto) 1.94 K/mm3 (0.9-3.2) Glenn # (Auto) 0.5 K/mm3 (0.1-0.6) Eos # (Auto) 0.1 K/mm3 (0-0.3) Baso # (Auto) 0.0 K/mm3 (0.0-0.1) Abs Immat Gran (auto) 0.02 K/mm3 (0.00-0.031) Absolute Neuts (auto) 4.1 K/mm3 (1.3-6.7) Absolute Nucleated RBC 0.0 K/mm3 (0.0-0.012) Nucleated RBC % 0.0 % (0.0-0.2) RPR Pending : gestational age HCG: positive Patient hx anesthesia problems: none Family hx anesthesia problems: none Results Review: All pre-operative results and documents have been reviewed as part of the pre-operative evaluation. [facility] Past Medical History Medical History Herpes simplex type 1 infection History of vaginal delivery Morbid obesity and not yet delivered Surgical History Surgical History [place] teeth removed Family History Family History Father Depression Mother Diabetes mellitus Grandparent No problems noted. Social History Social History Smoking status: Never smoker Alcohol intake: never Substance use: never Substance use type: does not use Lack of Transportation: No Lack of Food: Never True Current Housing: I Have Housing Concerned About Future Housing: No Difficulty Paying Gas/Electric Bills: No Difficulty Paying for Meds: No Currently Unemployed: No Education: Bachelor's Degree Difficulty w/ Childcare or Family Care: No Gender identity (if verbalized by the patient): Female Spiritual care concerns: No Anes - Eval Final PreProcedure Day of Procedure 02/17/23 17:03 Patient weight: morbidly obese Airway: Mallampati scale class II ASA classification: III Emergent: no Anesthetic plan: proceed Anesthesia type and monitoring: standard monitoring Results Review: All pre-operative results and documents have been reviewed as part of the pre-operative evaluation. Informed Consent: The patient's anesthetic plan and its attendant risks and benefits were discussed with the patient/family/POA. Questions were solicited and answers provided to the satisfaction of the patient/family/POA.
[2023-02-17] MEDS: LACTATED RINGERS 1,000 ML 125 ML IV CONT (17:15)
[2023-02-17] MEDS: AMPICILLIN 2 GM/NS 100 ML 2 GM/100 ML BAG IVPB (17:16)
--- NOTE | 2023-02-17 17:46 | LDADM ---
This patient, Cesar Drake, was admitted to Labor/Delivery/Recovery 107 on 02/17/23 at 16:06. Plans for labor, pain management and were discussed with patient. Patient/family oriented to hospital policies and general routines including ID bracelet, bed and alarms, visiting hours, pain management, procedures, bathroom and other care routines, personal items, smoking policy, room service/diet and guest tray routines, infant security routines, and visiting hours. Patient/Family are encouraged to report perceived risks to care and to ask questions if they do not understand what they are told or what they should do. See [facility] for further documentation.
[2023-02-18] VITALS (227 sets, daily range): BP systolic 90–165; BP diastolic 41–126; PULSE 65–241; TEMP 36.4–37.3; O2SAT 75–100
[2023-02-18] MEDS: AMPICILLIN 1 GM/NS 50 ML 1 GM/50 ML BAG IVPB ×6 (02:32→23:36)
[2023-02-18] MEDS: OXYTOCIN 30 UNITS/NS 500 ML 30 UNITS/500 ML BAG IV CONT (06:15)
--- NOTE | 2023-02-18 08:36 | PM.IMHP ---
H&P: HPI History of Present Illness Date/Time: 02/18/23 08:36 Chief Complaint: MIL Narrative: She is a 23 y/o at 39 weeks by LMP 05/19/23 with an EDC 02/23 23 consistent with 8 week ultrasound. PNC significant for H/o HSV. She has been on suppression during the . No lesions during . No lesions at time of admission. Estimated weight has been in 80-90%. last ultrasound in 80th %. She has been getting reassuring surveillance testing which has been done due to BMI >40. She has been informed of option of induction and risk benefit. Has been informed of risk of C/S with LGA fetus. Labs reviewed, pos GBS. Review of Systems Review of Systems: All systems reviewed & are unremarkable except as noted in HPI and below Constitutional: Constitutional: Reports no additional constitutional complaints and Denies headache(s) Eyes: Eyes: Denies spots in vision ENT: Reports system reviewed and no additional complaints, except as documented and Denies headache(s) Cardiovascular: Cardiovascular: Denies chest pain and Denies dyspnea Respiratory: Respiratory: Denies dyspnea Gastrointestinal: Gastrointestinal: Reports no additional gastrointestinal complaints Genitourinary: Genitourinary: Reports amenorrhea Musculoskeletal: Musculoskeletal: Reports no additional musculoskeletal complaints Integumentary/Breasts: Skin/Breast: Denies breast mass and Denies rash Neurologic: Denies headache(s) Psychiatric: Psychiatric: Reports no additional psychiatric complaints [facility] Past Medical History Medical History Herpes simplex type 1 infection History of vaginal delivery Morbid obesity and not yet delivered Surgical History Surgical History [place] teeth removed Family History Family History Father Depression Mother Diabetes mellitus Grandparent No problems noted. Social History Social History Smoking status: Never smoker Second hand tobacco smoke exposure: No Alcohol intake: never Substance use: never Substance use type: does not use Lack of Transportation: No Lack of Food: Never True Current Housing: I Have Housing Concerned About Future Housing: No Difficulty Paying Gas/Electric Bills: No Difficulty Paying for Meds: No Currently Unemployed: No Education: Bachelor's Degree Difficulty w/ Childcare or Family Care: No Gender identity (if verbalized by the patient): Female Spiritual care concerns: No Meds Home Medications and Allergies Home Medications Medication Instructions Recorded Confirmed Type acyclovir 400 mg tablet 400 mg PO DAILY 07/08/22 02/17/23 History calcium carbonate 200 mg calcium 200 mg PO BID 07/08/22 02/17/23 History (500 mg) chewable tablet (Tums) vit 67-iron ps 29 mg 1 cap PO DAILY #90 caps 08/06/22 02/17/23 Rx iron-folate no.1 1 mg-dha 200 mg capsule (Vitafol Ultra) Allergies Allergy/AdvReac Type Severity Reaction Status Date / Time valacyclovir Allergy Intermediate Hives Verified 02/11/23 10:42 Vital Signs Vital Signs - 24 hr 02/17/23 16:50 02/17/23 17:01 02/17/23 17:17 Temperature Pulse Rate 97 98 96 Blood Pressure 129/74 132/44 L 124/79 Pulse Oximetry 02/17/23 17:31 02/17/23 17:46 02/17/23 18:01 Temperature Pulse Rate 98 95 91 Blood Pressure 117/86 116/67 117/58 L Pulse Oximetry 02/17/23 18:18 02/17/23 18:32 02/17/23 18:46 Temperature Pulse Rate 86 86 82 Blood Pressure 123/55 L 115/47 L 120/78 Pulse Oximetry 02/17/23 19:01 02/17/23 19:16 02/17/23 19:31 Temperature Pulse Rate 84 83 86 Blood Pressure 122/64 130/81 129/72 Pulse Oximetry 02/17/23 19:46 02/17/23 20:16 02/17/23 20:31 Temperature Pulse Rate 94 111 H 92 B
[2023-02-18 09:23] LABS: Rapid Plasma Reagin Non-Reactive (NonReactive)
[2023-02-18] MEDS: miSOPROStol 25 MCG TABLET VAGINAL ×2 (09:50→13:44)
[2023-02-18] MEDS: LACTATED RINGERS 1,000 ML 125 ML IV CONT ×3 (10:15→21:00)
--- NOTE | 2023-02-18 16:32 | PM.OBPNVD ---
OB - PN: Subj Subjective Date/time seen: 02/18/23 16:32 Interval history: she is requesting epidural, bloody show on towel, fht 130, cat 1, cervix 2.5/75/-2, AROM clear some slight blood tinge. OB - PN: Obj Data Labs 02/17/23 16:21 Labs: Laboratory Results - last 24 hr 02/17/23 16:21 WBC 6.8 RBC 3.53 L Hgb 11.1 L Hct 34.2 L MCV 96.9 MCH 31.4 MCHC 32.5 RDW 12.6 Plt Count 250 MPV 9.1 Immature Gran % (Auto) 0.3 Neut % (Auto) 61.2 Lymph % (Auto) 28.7 [place] % (Auto) 7.9 Eos % (Auto) 1.6 Baso % (Auto) 0.3 Lymph # (Auto) 1.94 [place] # (Auto) 0.5 Eos # (Auto) 0.1 Baso # (Auto) 0.0 Abs Immat Gran (auto) 0.02 Absolute Neuts (auto) 4.1 Absolute Nucleated RBC 0.0 Nucleated RBC % 0.0 RPR Non-reactive Blood Type O Positive Antibody Screen Negative OB - PN A/P Time Spent With Patient Time: Total time spent is greater than 50% in coordination of care (as documented) at patient's floor/unit and/or counseling patient:
--- NOTE | 2023-02-18 21:44 | PM.OBPNLAB ---
Pain Control Date/time seen: 02/18/23 21:44 Comments: fht 130, cat 2, cervix 3/ swelling at posterior cervix 50%, anterior cervix 75, -3, ctx irreg, adequate MVU, no pitocin.. She was informed there is cervical swelling which is most likely due to position, possible OT. She does not have adequate analgesia. Will call anesthesia. Will give IV Benadryl for cervical swelling. Discussed with her she is in latent labor. Will continue with monitoring labor. Once she is comfortable then will consider pitocin if not adequate contractions.
[2023-02-18] MEDS: diphenhydrAMINE HCl INJ 50 MG/ML VIAL 25 MG IV PUSH (21:51)
[2023-02-18] MEDS: TERBUTALINE SULFATE 1 MG/ML VIAL 0.25 MG SUB-Q (22:20)
--- NOTE | 2023-02-18 22:22 | PM.OBPNVD ---
OB - PN: Subj Subjective Date/time seen: 02/18/23 0840 Interval history: Fht 130, cat 1, cervix /. Will stop Pitocin and start Cytotec 25ug q 4 hour. OB - PN: Obj Data Labs 02/17/23 16:21 Labs: Laboratory Results - last 24 hr 02/17/23 16:21 RPR Non-reactive OB - PN A/P Time Spent With Patient Time: Total time spent is greater than 50% in coordination of care (as documented) at patient's floor/unit and/or counseling patient:
--- NOTE | 2023-02-18 22:23 | PM.OBPNVD ---
OB - PN: Subj Subjective Date/time seen: 02/18/23 22:23 Interval history: Fht 130, Cat 2, spontaneous persistent tachycardia. Will give terbutaline. OB - PN: Obj Data Labs 02/17/23 16:21 Labs: Laboratory Results - last 24 hr 02/17/23 16:21 RPR Non-reactive OB - PN A/P Time Spent With Patient Time: Total time spent is greater than 50% in coordination of care (as documented) at patient's floor/unit and/or counseling patient:
--- NOTE | 2023-02-18 22:58 | PM.OBPNVD ---
OB - PN: Subj Subjective Date/time seen: 02/18/23 22:58 Interval history: fht 125, Cat 2, periods of absent to minimal variability, ? nonrepetitive late, ctx pattern tachysystole, FSE placed, cervix 5/-2. OB - PN: Obj Data Labs 02/17/23 16:21 Labs: Laboratory Results - last 24 hr 02/17/23 16:21 RPR Non-reactive OB - PN A/P Time Spent With Patient Time: Total time spent is greater than 50% in coordination of care (as documented) at patient's floor/unit and/or counseling patient:
--- NOTE | 2023-02-18 23:29 | PM.OBPNVD ---
OB - PN: Subj Subjective Date/time seen: 02/18/23 23:29 Interval history: Cat 3, fht 140, recurrent late decels,minimal variability, cervix 5/75/-2, with swelling. Afebrile. She was recommended for section for nonreassuring tracing. She was informed of risk/benefit of section and risk of continuing labor. Questions answered. She agreed to section. OB - PN: Obj Data Labs 02/17/23 16:21 Labs: Laboratory Results - last 24 hr 02/17/23 16:21 RPR Non-reactive OB - PN A/P Time Spent With Patient Time: Total time spent is greater than 50% in coordination of care (as documented) at patient's floor/unit and/or counseling patient:
[2023-02-19] VITALS (45 sets, daily range): BP systolic 95–150; BP diastolic 42–82; PULSE 88–112; RESP 14–20; TEMP 36.9–37.2; O2SAT 86–100
[2023-02-19] MEDS: AZITHROMYCIN 500 MG/NS 250 ML 500 MG/250 ML BAG 250 MG IVPB
[2023-02-19] MEDS: ceFAZolin 3 GM/D5W 100 ML 100 ML IVPB
--- NOTE | 2023-02-19 01:49 | W.PM.PROC2 ---
Procedure Note - Detailed Date of Procedure 02/20/23 Pre-op Diagnosis intolerance to labor Post-op Diagnosis Same Procedure Performed Primary low transverse section Surgeon Elroy George MD Anesthesia Epidural Indications Patient admitted for MIL on evening of 02/17. She had cervidil and then cytotec the morning of 02/18. She dilated to 2.5 cm on cytotec. She had AROM. She continued to contract regularly without pitocin. She had epidural placed on request. tracing was Cat 2 with intermittent episodes of minimal variability and intermittent episodes of tachysystole. IVF were increased. There was noted to be cervical swelling which Benadryl was given and the swelling resolved and she dilated to five. She continued to have increased contractions and was given terbutaline. This did not significantly decrease the contractions. FSE was placed and there were mild late decelerations and minimal variability. Cervical exam was unchanged and cervix was starting to swell. She was informed of recommendation for for nonreassuring tracing remote from delivery. Findings Female , ROP, vacuum assisted delivery of head. Normal uterus tubes and ovaries. Description of Procedure After informed consent, risks and benefits of the procedure was discussed with the patient. The patient was taken to the operating room where she was placed in the dorsal lithotomy position with leftward tilt. After the prior placed epidural anesthesia was found to be adequate, she was then prepped and draped in the usual sterile fashion. A Pfannenstiel skin incision was made with a scalpel and carried through to the underlying layer of fascia. The fascia was then nicked in the midline, extending bilaterally. The fascia was dissected off the rectus muscles bluntly and sharply, superiorly and inferiorly. The rectus muscles were in the midline, and peritoneum was identified and entered bluntly. The pelvic organs were visualized. The bladder blade was then inserted. The vesicouterine peritoneum was identified and entered sharply with Metzenbaum scissors and extended bilaterally and then the bladder flap was created digitally. The low transverse uterine incision was then made with the scalpel and extended with bilateral index fingers in a crescent-shaped fashion. The head was very deep in the pelvis, I requested scrub nurse to try to elevate head which was in the OP position. It took over a minute to deliver the head up to the incision. Once the head was out of the pelvis, the position was rotating transverse, external pressure applied to abdomen to have fetus position central head down and vacuum applied and with gentle traction the head was delivered and the rest of the infant was delivered. The cord was clamped twice and cut. was crying when handed to core inserter and nursing staff. The nose and mouth suctioned with bulb prior to handing baby to nursery staff. The placenta was then delivered manually. The uterine cavity was sponge curretted. The uterus was then exteriorized. The uterine incision was then closed with 0 vicryl in a running locked fashion. There were inferior extensions of the incision in the middle and to the right of incision. The lacerations were repaired with figure of eight and running 0 vicry. Multiple figure of eight sutures of 0 vicryl were used to umbricate incision. Hemostasis noted. The posterior cul de sac was irrigated. The uterus was then returned to the abdomen. Bilateral gutters were cleared off all clots and debris. The uterine incision was noted to be hemostatic. The muscle bellies were inspected and noted to be hemostatic. The subfascial layer was noted to be hemostatic, and the fascia was closed with 0 Vicryl in a running fashion. The subcutaneous layer was noted to be hemostatic and this layer was approximated with with 3-0 Vicryl. The skin was closed with Insorb estela. Skin dermabond a
[2023-02-19] MEDS: OXYTOCIN 30 UNITS/NS 500 ML 30 UNITS/500 ML BAG 125 UNITS IV CONT (04:15)
--- NOTE | 2023-02-19 04:15 | OBPPTRN ---
Patient transferred to post room #284 via stretcher. Support person present. Oriented to unit, room, information board, rooming in, admission packet and security measures. Patient verbalizes understanding.
[2023-02-19] MEDS: IBUPROFEN 600 MG TABLET (04:58)
[2023-02-19] MEDS: DOCUSATE SODIUM 100 MG CAPSULE PO ×2 (09:31→17:47)
[2023-02-19] MEDS: diphenhydrAMINE HCl INJ 50 MG/ML VIAL IV PUSH (09:31)
[2023-02-19] MEDS: MULTIVIT/MIN/PREN/FOL AC/IRON TABLET 1 TAB PO (09:32)
[2023-02-19] MEDS: DEXTROSE 5%/0.45% SOD CHL 1,000 ML 125 ML IV CONT (09:33)
[2023-02-19] MEDS: IBUPROFEN 600 MG TABLET PO ×2 (13:36→22:20)
[2023-02-19] MEDS: SIMETHICONE 80 MG TAB.CHEW PO (17:47)
[2023-02-19] MEDS: HYDROcodone/acetaminophen (*CRX) 5-325 MG TABLET 1 TAB PO (18:40)
[2023-02-19] MEDS: HYDROcodone/acetaminophen (*CRX) 10-325 MG TABLET 1 TAB PO (22:20)
[2023-02-20 01:00] VITALS: BP 126/75; PULSE 94; RESP 20; TEMP 36.9
[2023-02-20] MEDS: IBUPROFEN 600 MG TABLET PO ×3 (05:19→19:30)
[2023-02-20] MEDS: HYDROcodone/acetaminophen (*CRX) 10-325 MG TABLET 1 TAB PO (05:19)
[2023-02-20 06:04] LABS: Basophils Percent Auto 0.2 % (0.2-1.2); Eosinophils Absolute Auto 0.2 K/mm3 (0-0.3); Eosinophils Percent Auto 1.6 % (0-4.4); Hematocrit 29.8 % (37.0-47.0); Hemoglobin 9.8 g/dL (12.0-15.0); Immature Granulocyte Absolute 0.08 K/mm3 (0.00-0.031); Immature Granulocyte Percent A 0.7 % (0-0.5); Lymphocytes Absolute Auto 2.01 K/mm3 (0.9-3.2); Lymphocytes Percent Auto 18.2 % (18.3-44.2); Mean Corpuscular HGB Conc 32.9 g/dl (32-36); Mean Corpuscular Hemoglobin 31.9 pg (26-34); Mean Corpuscular Volume 97.1 fl (80-100); Mean Platelet Volume 9.6 fl (7.4-10.4); Monocytes Absolute Auto 0.9 K/mm3 (0.1-0.6); Monocytes Percent Auto 7.8 % (2.6-8.5); Neutrophils Absolute Auto 7.9 K/mm3 (1.3-6.7); Neutrophils Percent Auto 71.5 % (45.5-73.1); Platelet Count Result 197 k/mm3 (150-375); Red Blood Count 3.07 M/mm3 (4.2-5.4); Red Cell Distribution Width 12.9 % (11.5-14.5)
[2023-02-20 08:00] VITALS: PULSE 97; RESP 18; O2SAT 96
[2023-02-20 08:20] VITALS: BP 136/73; PULSE 97; RESP 18; TEMP 37.2; O2SAT 96
[2023-02-20] MEDS: POLYSACCHARIDE IRON COMPLEX 150 MG CAPSULE PO ×2 (08:52→17:52)
[2023-02-20] MEDS: MULTIVIT/MIN/PREN/FOL AC/IRON TABLET 1 TAB PO (08:52)
[2023-02-20] MEDS: DOCUSATE SODIUM 100 MG CAPSULE PO ×2 (08:52→17:53)
[2023-02-20] MEDS: SIMETHICONE 80 MG TAB.CHEW PO ×2 (08:53→17:53)
--- NOTE | 2023-02-20 11:08 | WPDANLDNPN2 ---
Anes-Prog Note L&D-Neuraxial Date/Time: 02/20/23 11:08 Patient feedback: Patient satisfied with post-operative pain management.
--- NOTE | 2023-02-20 11:08 | WPDANLDPN2 ---
Anes-Prog Note L&D Date/Time: 02/20/23 11:08 Neuro status: Neuro function grossly intact. Vital Signs: Last Vital Signs Temp 37.2 C 02/20/23 08:20 Pulse 97 02/20/23 08:20 Resp 18 02/20/23 08:20 BP 136/73 02/20/23 08:20 Pulse Ox 96 02/20/23 08:20 O2 Del Method Room Air 02/19/23 08:00 Pain score (VAS): 0 I/O: Intake & Output 02/19/23 02/20/23 02/20/23 23:59 07:59 15:59 Intake Total 1961 Output Total 1600 Balance 361 Patient feedback: Patient satisfied with anesthetic care.
[2023-02-20] MEDS: HYDROcodone/acetaminophen (*CRX) 5-325 MG TABLET 1 TAB PO ×2 (13:29→19:29)
--- NOTE | 2023-02-20 16:10 | PM.OBPNVD ---
OB - PN: Subj Subjective Date/time seen: 02/20/23 Interval history: Lochia is minimal. Baby is doing well. She has ambulated in the room. No flatus. No nausea vomiting. No leg pain. No lightheadedness/dizziness. Patient comments: pain well controlled and tolerating diet feeding status: pumping and bottle feeding OB - PN: Obj Data Labs 02/20/23 05:58 Labs: Laboratory Results - last 24 hr 02/20/23 05:58 WBC 11.0 H RBC 3.07 L Hgb 9.8 L Hct 29.8 L MCV 97.1 MCH 31.9 MCHC 32.9 RDW 12.9 Plt Count 197 MPV 9.6 Immature Gran % (Auto) 0.7 H Neut % (Auto) 71.5 Lymph % (Auto) 18.2 L [place] % (Auto) 7.8 Eos % (Auto) 1.6 Baso % (Auto) 0.2 Lymph # (Auto) 2.01 [place] # (Auto) 0.9 H Eos # (Auto) 0.2 Baso # (Auto) 0.0 Abs Immat Gran (auto) 0.08 H Absolute Neuts (auto) 7.9 H Absolute Nucleated RBC 0.0 Nucleated RBC % 0.0 OB - PN A/P Assessment and Plan (1) Delivery by section: Status: Acute Assessment and Plan: Postop day 1 doing well. Routine post care. Time Spent With Patient Time: Total time spent is greater than 50% in coordination of care (as documented) at patient's floor/unit and/or counseling patient: Exam Const: General: comfortable and no acute distress Eyes: General: appearance normal, both eyes and all related structures Resp: Effort & Inspection: normal respiratory effort Auscultation: clear to auscultation bilaterally Cardio: Rate: regular rate GI: Other: Bowel sounds present fundus appropriately tender at umbilicus incision clean dry and intact Skin: General skin exam: normal color Extrem: General: no calf tenderness (Trace lower extremity edema) Psych: Mental Status: mental status grossly normal
[2023-02-20 20:00] VITALS: BP 139/76; PULSE 68; RESP 18; TEMP 36.6; O2SAT 97
[2023-02-21] MEDS: IBUPROFEN 600 MG TABLET PO ×2 (01:02→09:03)
[2023-02-21] MEDS: HYDROcodone/acetaminophen (*CRX) 5-325 MG TABLET 1 TAB PO ×3 (01:02→13:09)
[2023-02-21] MEDS: SIMETHICONE 80 MG TAB.CHEW PO (01:02)
[2023-02-21 08:00] VITALS: BP 134/75; PULSE 91; RESP 18; TEMP 36.6
[2023-02-21] MEDS: MULTIVIT/MIN/PREN/FOL AC/IRON TABLET 1 TAB PO (09:03)
[2023-02-21] MEDS: POLYSACCHARIDE IRON COMPLEX 150 MG CAPSULE PO (09:03)
[2023-02-21] MEDS: DOCUSATE SODIUM 100 MG CAPSULE PO (09:03)
[2023-02-24 13:02] VITALS: BP 143/77; PULSE 76; RESP 18; TEMP 36.7; O2SAT 100
--- NOTE | 2023-03-20 13:35 | PM.OBDSVD ---
DS: Admitting Diagnosis Discharge Date 02/21/23 Admitting Diagnosis Induction of labor DS: Discharge Diagnosis Discharge Diagnosis Plan Non reassuring tracing Failure to progress OB - DS: Summary Hospital Course Hospital Course: Patient admitted for MIL on evening of 02/17. She had cervidil and then cytotec the morning of 02/18. She dilated to 2.5 cm on cytotec. She had AROM. She continued to contract regularly without pitocin. She had epidural placed on request. tracing was Cat 2 with intermittent episodes of minimal variability and intermittent episodes of tachysystole. IVF were increased. There was noted to be cervical swelling which Benadryl was given and the swelling resolved and she dilated to five. She continued to have increased contractions and was given terbutaline. This did not significantly decrease the contractions. FSE was placed and there were mild late decelerations and minimal variability. Cervical exam was unchanged and cervix was starting to swell. She was informed of recommendation for for nonreassuring tracing remote from delivery. She did well . On day 1 she was tolerating regular food. She was ambulating well had adequate pain control. Baby was doing well. Lochia was light. On day 2 she was doing well also. Requested discharge home. She was ambulating had flatus. Discharge precautions discussed. OB Procedures : NST OB Procedures Intrapartum: OB Procedures: : None Peripartum Data Infant Delivery Method: Section Procedures: Procedures Operation Date: 02/18/23 23:30 Actual Procedure Side Surgeon p Section Not Applicable Elroy George MD complications: none Status at Discharge Functional status at discharge: independent ambulation Time Spent with Patient Time attestation: Total time spent providing and/or coordinating discharge services: Exam Const: General: cooperative Orientation/consciousness: oriented to person, oriented to place and oriented to time HENMT: Face/Nose/Sinus: Normal external nose present Eyes: General: appearance normal, both eyes and all related structures Resp: Effort & Inspection: normal respiratory effort GI: Inspection: normal to inspection Other: Incision healing well. Skin: General skin exam: normal color Neuro: General: oriented to person, oriented to place and oriented to time Extrem: General: normal to inspection and no calf tenderness Psych: Appearance: grossly normal Mental Status: mental status grossly normal DS: Data Data Completed and Pending Completed studies during hospitalization: Pending at discharge 02/19/23 02:13 Surgical [PTH] Routine Discharge Plan Discharge Attending physician on discharge: Elroy George Consulting providers: Audie Wilkes; Jovanny Astudillo; Carin Vlilela Discharging Clinician: Elroy George Anticipated Discharge Date/Time: 02/21/23 07:53 Patient Disposition: Home, Self-Care Activity: may shower, no straining, no driving and pelvic rest Diet: regular Discharge Instructions: Education: Mom and Baby Guide Given to: Mother Follow-Up: Call your delivering provider's office for an appointment to be seen in: 2 Weeks Mom and baby should come to the [facility] for the follow-up appointment. Appointment Date/Time: February 24, 2023 at 12:30 pm What to expect at your follow-up visit: Physical Assessment Call [phone] if you are unable to keep your appointment time. BREAST CARE: * Wear a snug supportive bra. * For engorgement discomfort: Breast Feeding: * Apply warm moist washcloths * Express milk as needed to relieve engorgement * Wear loose clothing * For sore nipples: * Identify correct latch-on * Apply warm moist washcloths before and after nursing * Air dry nipples after hetal
== END 2023-02-21 15:22 | disposition home or self-care (01) | DRG 540 ==
LOC: ANHLDR 16:10 → ANHOB2 02-19 04:17
PROVIDERS: Admitting Provider Obstetrics & Gynecology; Visit Provider Obstetrics & Gynecology
PROC: 10D00Z1 Extraction of Products of Conception, Low, Open Approach (ICD-10-PCS; CPT 59514; principal; 2023-02-18 23:30)
DX: O99.824 Streptococcus B carrier state complicating childbirth (principal); O98.32 Other infections with a predominantly sexual mode of transmission complicating childbirth; A60.09 Herpesviral infection of other urogenital tract; Z37.0 Single live birth; Z3A.39 39 weeks gestation of pregnancy; O36.8330 Maternal care for abnormalities of the fetal heart rate or rhythm, third trimester, not applicable or unspecified
CPT/HCPCS: 36415; 85025; 86592; 86850; 86900; 86901; 88307; A9270; J0131; J0290; J0456; J0690; J1100; J1200; J2274; J2405; J2590; J2795; J3105; J7120

== ENCOUNTER 2023-06-12 11:44 | Emergency (ER) | payer OTHER, SELFPAY ==
[2023-06-12 12:18] VITALS: BP 150/90; PULSE 106; RESP 18; TEMP 37.1; O2SAT 100
--- NOTE | 2023-06-12 12:20 | ED.URI ---
HPI - URI/Sore Throat General Chief Complaint: Upper Respiratory Infection Stated Complaint: Body Aches,Headache,Sore Throat Time Seen by Provider: 06/12/23 12:21 Source: patient, RN notes reviewed and old records reviewed Mode of arrival: ambulatory Limitations: no limitations History of Present Illness HPI Narrative: 23-year-old female who presents to [facility] with complaints of body aches, headache and sore throat which started last night. Patient reports that she has been on Amoxicillin since the of this month for dental problem and had dental extraction done yesterday.Patient states that she has had positive COVID exposure on Friday. Patient reports that she has has taken hydrocodone for dental pain. Patient denies any known fevers, chills or cough or any shortness of breath. MD elicited complaint: cough, sore throat and other (body aches and headaches) Onset (ago): day(s) (started last evening) Pain scale (0-10): 3 Able to tolerate fluids by mouth: Yes Treatments prior to arrival: antibiotics and other (Hydrocodone) Related Data Home Medications Medication Instructions Recorded Confirmed acyclovir 400 mg tablet 400 mg PO DAILY 07/08/22 06/12/23 amoxicillin 500 mg tablet 500 mg PO TID 06/12/23 06/12/23 Allergies Allergy/AdvReac Type Severity Reaction Status Date / Time valacyclovir Allergy Intermediate Hives Verified 06/12/23 12:14 Review of Systems Review of Systems: CONSTITUTIONAL: Denies malaise, chills, sweats, or fever. EYES: Denies visual changes, redness, or discharge. ENT: Reports no rhinorrhea, congestion, sinus pain,no otalgia positive for sore throat. CARDIOVASCULAR: Denies chest pain, palpitations, or edema. RESPIRATORY: Reports no cough.? Denies dyspnea. GASTROINTESTINAL: Denies abdominal pain, nausea, vomiting, diarrhea SKIN: Denies rash or itching. MUSCULOSKELETAL: Reports myalgia. NEUROLOGIC:Reports headache. All systems reviewed & are unremarkable except as noted in HPI and below PMFSH Past Medical History Medical History Herpes simplex type 1 infection History of vaginal delivery Morbid obesity Surgical History Surgical History History of delivery [place] teeth removed Family History Family History Father Depression Mother Diabetes mellitus Grandparent No problems noted. Social History Social History Smoking status: Never smoker Second hand tobacco smoke exposure: No Alcohol intake: never Substance use: never Substance use type: does not use Lack of Transportation: No Lack of Food: Never True Current Housing: I Have Housing Concerned About Future Housing: No Difficulty Paying Gas/Electric Bills: No Difficulty Paying for Meds: No Currently Unemployed: No Education: Bachelor's Degree Difficulty w/ Childcare or Family Care: No Gender identity (if verbalized by the patient): Female Spiritual care concerns: No Comments At time of signature, agree with nursing past medical, surgical, social and family history. There is no relevant family history pertinent to the presenting complaint Exam Narrative: GENERAL: Well-appearing, well-nourished, and in no acute distress. HEAD: Normocephalic EYES: PERRLA, conjunctivae clear ENT: Nares clear, turbinates edematous and erythematous, clear discharge. Mucous membranes moist. TM pearly murphy with dull light reflex bilaterally; no tragal tenderness. Oropharynx erythematous without lesions. Tonsils not enlarged and without exudate, no drooling, no hoarseness, no trismus, uvula midline, recent dental extraction no facial swelling noted. NECK: Supple. No lymphadenopathy CHEST: Clear to auscultation, breath sounds equal. No wheezing, rhonchi, rales,
== END 2023-06-12 13:00 | disposition home or self-care (01) ==
PROVIDERS: Emergency Provider Registered Nurse; PCP Emergency Medicine
DX: U07.1 COVID-19 (principal); E66.01 Morbid (severe) obesity due to excess calories; Z68.42 Body mass index [BMI] 45.0-49.9, adult
CPT/HCPCS: 87426; 99213; C9803; G0463

== ENCOUNTER 2024-05-10 10:09 | Emergency (ER) | payer OTHER, SELFPAY ==
[2024-05-10 10:24] VITALS: BP 117/74; PULSE 92; RESP 18; TEMP 36.8; O2SAT 99
--- NOTE | 2024-05-10 10:26 | ED.URI ---
HPI - URI/Sore Throat General Chief Complaint: Upper Respiratory Infection Stated Complaint: cold symptoms Time Seen by Provider: 05/10/24 10:27 Source: patient, RN notes reviewed and old records reviewed Mode of arrival: ambulatory Limitations: no limitations History of Present Illness HPI Narrative: patient presents with 2 days of COVID like symptoms. She reports that her children have been ill as well. Patient reports that she has had runny nose, headache, loose stools, loss of taste and smell. Headache is her worst symptom. She has been taking Tylenol with moderate relief. She denies any fevers or chills. She denies body aches. She voices no other concerns today Related Data Home Medications Medication Instructions Recorded Confirmed No Home Medications 05/10/24 05/10/24 Allergies Allergy/AdvReac Type Severity Reaction Status Date / Time valacyclovir Allergy Intermediate Hives Verified 05/10/24 10:36 Review of Systems Review of Systems: All systems reviewed & are unremarkable except as noted in HPI and below Constitutional: Constitutional: Reports as per HPI and Reports no additional constitutional complaints ENT: Reports system reviewed and no additional complaints, except as documented Cardiovascular: Cardiovascular: Reports no additional cardiovascular complaints Respiratory: Respiratory: Reports no additional respiratory complaints Gastrointestinal: Gastrointestinal: Reports as per HPI, Reports no additional gastrointestinal complaints and Reports loose stools Neurologic: Reports system reviewed and no additional complaints, except as documented and Reports headache(s) PMFSH Past Medical History Medical History Herpes simplex type 1 infection History of vaginal delivery Morbid obesity Surgical History Surgical History History of delivery [place] teeth removed Family History Family History Father Depression Mother Diabetes mellitus Grandparent No problems noted. Social History Social History Smoking status: Never smoker Second hand tobacco smoke exposure: No Alcohol intake: never Substance use: never Substance use type: does not use Lack of Transportation: No Lack of Food: Never True Current Housing: I Have Housing Concerned About Future Housing: No Difficulty Paying Gas/Electric Bills: No Difficulty Paying for Meds: No Currently Unemployed: No Education: Bachelor's Degree Difficulty w/ Childcare or Family Care: No Gender identity (if verbalized by the patient): Female Spiritual care concerns: No Comments At the time of my signature, I reviewed and agree with the nursing past medical, surgical, social, and family history. There is no relevant family history pertinent to the patient complaint. Exam Const: General: cooperative, no acute distress, alert and awake Orientation/consciousness: oriented to person, oriented to place and oriented to time HENMT: Head: normal to inspection Ears: TM's normal bilaterally Face/Nose/Sinus: Nasal discharge present clear bilateral Mouth: Yes moist mucous membranes Resp: Effort & Inspection: normal respiratory effort and able to speak in complete sentences Auscultation: clear to auscultation bilaterally, no crackles, no rales, no rhonchi and no wheezes Cardio: Palpation: normal PMI Rate: regular rate Rhythm: regular rhythm Heart sounds: S1 normal heart sound present and S2 normal heart sound present Neuro: General: oriented to person, oriented to place and oriented to time Cranial nerves: Yes CN's II-XII intact bilaterally Psych: Appearance: grossly normal Thought process: Normal thought process present Insight: Good insight present (Psych) Judgement: Good judgement present
[2024-05-10 11:01] LABS: EDINFLUASCREEN Negative; EDINFLUBSCREEN Negative
== END 2024-05-10 11:05 | disposition home or self-care (01) ==
PROVIDERS: Emergency Provider Nurse Practitioner Family; Referring Provider Emergency Medicine
DX: U07.1 COVID-19 (principal); E66.01 Morbid (severe) obesity due to excess calories; Z68.42 Body mass index [BMI] 45.0-49.9, adult
CPT/HCPCS: 87426; 87804; 99213; G0463

== ENCOUNTER 2024-06-28 14:18 | Emergency (ER) | payer OTHER, SELFPAY ==
--- NOTE | 2024-06-28 14:36 | ED.URI ---
HPI - URI/Sore Throat General Chief Complaint: Ear Stated Complaint: LT Ear Pain Time Seen by Provider: 06/28/24 15:21 Source: patient, RN notes reviewed and old records reviewed Mode of arrival: ambulatory Limitations: no limitations History of Present Illness HPI Narrative: 24-year-old female presents to the [facility] with complaints of left ear pain for couple weeks. Has had sinus congestion, runny nose and sniffling for the last 2-3 days. No treatment prior to arrival Related Data Allergies Allergy/AdvReac Type Severity Reaction Status Date / Time valacyclovir AdvReac Mild Hives Verified 06/28/24 14:54 Review of Systems Review of Systems: All systems reviewed & are unremarkable except as noted in HPI and below Constitutional: Constitutional: Reports no additional constitutional complaints Eyes: Eyes: Reports no additional eye complaints ENT: Reports as per HPI, Reports otalgia and Reports sinus pressure Cardiovascular: Cardiovascular: Reports no additional cardiovascular complaints, Denies chest pain and Denies dyspnea Respiratory: Respiratory: Reports no additional respiratory complaints, Denies chest congestion, Denies cough and Denies dyspnea Gastrointestinal: Gastrointestinal: Reports no additional gastrointestinal complaints, Denies abdominal pain, Denies nausea and Denies vomiting Musculoskeletal: Musculoskeletal: Reports no additional musculoskeletal complaints Integumentary/Breasts: Skin/Breast: Reports system reviewed and no additional complaints, except as docu Neurologic: Reports system reviewed and no additional complaints, except as documented Psychiatric: Psychiatric: Reports no additional psychiatric complaints Allergic/Immunologic: Allergic/Immunologic: Reports no additional allergic/immunologic complaints PMFSH Past Medical History Medical History Herpes simplex type 1 infection History of vaginal delivery Morbid obesity Surgical History Surgical History History of delivery [place] teeth removed Family History Family History Father Depression Mother Diabetes mellitus Grandparent No problems noted. Social History Social History Smoking status: Never smoker Second hand tobacco smoke exposure: No Alcohol intake: never Substance use: never Substance use type: does not use Lack of Transportation: No Lack of Food: Never True Current Housing: I Have Housing Concerned About Future Housing: No Difficulty Paying Gas/Electric Bills: No Difficulty Paying for Meds: No Currently Unemployed: No Education: Bachelor's Degree Difficulty w/ Childcare or Family Care: No Gender identity (if verbalized by the patient): Female Spiritual care concerns: No Comments At the time of my signature, I reviewed and agree with the nursing past medical, surgical, social, and family history. There is no relevant family history pertinent to the patient complaint. Exam Const: General: cooperative, healthy appearing, comfortable, no acute distress, well developed, alert and well nourished Nutritional Appearance: well nourished and obese morbidly obese Orientation/consciousness: patient oriented x3 Limitations: no limitations HENMT: Head: normal to inspection Ears: hearing grossly normal bilaterally, external ears normal, TM normal on the left, mastoids normal, no periauricular adenopathy, Abnormal EAC present erythema (With abrasions) on the left, edema on the left and EAC tenderness on the left and TM abnormal bulging on the right and with fluid behind the TM on the right Face/Nose/Sinus: Normal external nose present, Normal nares present, Normal nasal mucous membranes and turbinates present, normal facial exam and face symmetric Face and sinus: n
[2024-06-28 14:47] VITALS: BP 126/82; PULSE 90; RESP 16; TEMP 36.3; O2SAT 100
== END 2024-06-28 15:32 | disposition home or self-care (01) ==
PROVIDERS: Emergency Provider Nurse Practitioner; PCP Emergency Medicine
DX: J06.9 Acute upper respiratory infection, unspecified (principal); S00.412A Abrasion of left ear, initial encounter; X58.XXXA Exposure to other specified factors, initial encounter; E66.01 Morbid (severe) obesity due to excess calories; Z68.42 Body mass index [BMI] 45.0-49.9, adult
CPT/HCPCS: 99213; G0463

== ENCOUNTER 2024-08-25 18:26 | Emergency (ER) | payer OTHER, SELFPAY ==
--- NOTE | ~2024-08-25 | XR_ITS ---
EXAMINATION: XR chest 2V DATE: 08/25/2024 19:07 INDICATION: One month of cough and decreased oxygen saturation TECHNIQUE: PA and lateral views of the chest were obtained. COMPARISON: Chest radiograph dated 03/14/2021 FINDINGS: The lungs remain clear with no focal airspace opacities, pulmonary edema, pleural effusion or pneumot horax. The cardiomediastinal silhouette is normal. Visualized bones and soft tissues are unremarkable . IMPRESSION: 1. No acute cardiopulmonary disease. Reviewed, dictated and finalized at location A. [employer]
[2024-08-25 18:37] VITALS: BP 131/70; PULSE 88; RESP 16; TEMP 36.7; O2SAT 100
--- NOTE | 2024-08-25 18:44 | ED_ITS ---
HPI - URI/Sore Throat General Chief Complaint: Upper Respiratory Infection Stated Complaint: sore throat Time Seen by Provider: 08/25/24 18:54 Source: patient and RN notes reviewed Mode of arrival: ambulatory Limitations: no limitations History of Present Illness HPI Narrative: 24-year-old female presents with concern of for 7 day history of sore throat cough. Reports her sister was diagnosed with strep in she was around her sister. She denies fever, aches, chills, sweats. She denies taking anything [id number] for his symptoms MD elicited complaint: cough and sore throat Related Data Allergies Allergy/AdvReac Type Severity Reaction Status Date / Time valacyclovir Allergy Mild Hives Verified 08/25/24 18:37 Review of Systems Review of Systems: CONSTITUTIONAL: Reports malaise. Denies chills, sweats, or fever. EYES: Denies visual changes, redness, or discharge. ENT: Reports rhinorrhea, congestion, and sore throat. CARDIOVASCULAR: Denies chest pain, palpitations, or edema. RESPIRATORY: Reports cough. Denies dyspnea. GASTROINTESTINAL: Denies abdominal pain, nausea, vomiting, diarrhea SKIN: Denies rash or itching. MUSCULOSKELETAL: Denies myalgia. NEUROLOGIC: Denies headache. All systems reviewed & are unremarkable except as noted in HPI and below PMFSH Past Medical History Medical History Herpes simplex type 1 infection History of vaginal delivery Morbid obesity Surgical History Surgical History History of delivery [place] teeth removed Family History Family History Father Depression Mother Diabetes mellitus Grandparent No problems noted. Social History Social History Smoking status: Never smoker Second hand tobacco smoke exposure: No Alcohol intake: never Substance use: never Substance use type: does not use Lack of Transportation: No Lack of Food: Never True Current Housing: I Have Housing Concerned About Future Housing: No Difficulty Paying Gas/Electric Bills: No Difficulty Paying for Meds: No Currently Unemployed: No Education: Bachelor's Degree Difficulty w/ Childcare or Family Care: No Gender identity (if verbalized by the patient): Female Spiritual care concerns: No Comments At time of signature, agree with nursing past medical, surgical, social and family history. There is no relevant family history pertinent to the presenting complaint Exam Narrative: GENERAL: Well-appearing, well-nourished, and in no acute distress. HEAD: Normocephalic EYES: PERRLA, conjunctivae clear ENT: Nares clear. Mucous membranes moist. TM pearly murphy with dull light reflex bilaterally; no tragal tenderness. Oropharynx not erythematous without lesions. Tonsils enlarged and without exudate, no drooling, no hoarseness, no trismus, uvula midline. NECK: Supple. No lymphadenopathy CHEST: Clear to auscultation, breath sounds equal. No wheezing, rhonchi, rales, or stridor. No respiratory distress, speaks in full sentences. HEART: Regular rate and rhythm. No murmur heard. SKIN: Warm, dry, no rash. NEURO: Alert and oriented x3. PSYCH: Normal mood and affect Course Course Emergency Course: Patient is aware of diagnosis, understands and agrees to treatment plan. Anticipatory guidance given. Patient agrees to follow-up as directed and is aware of reasons to seek care at the emergency department. Portions of this record may have been created with voice recognition software Level of Care: Express Care Visit Vital Signs Vital signs: Vital Signs Temperature 98.1 F 08/25/24 18:37 Pulse Rate 88 08/25/24 18:37 Respiratory Rate 16 08/25/24 18:37 Blood Pressure 131/70 08/25/24 18:37 Pulse Oximetry 100 08/25/24 18:37 Oxygen Delivery Room Air 08/25/24 18:37 Temperature 98.1 F 08/25/24 18:37 Pulse Rate 88 08/25/24 18:37 Respiratory Rate 16 08/25/24 18:37 Blood Pressure 131/70 08/25/24 18:37 Pulse Oximetry 100 08/25/24 18:37 Oxygen Delivery Room Air 08/25/24 18:37 Reviewed. MDM - URI/Sore Throat MDM Narrative Medical decision making narrative: Differential diagnosis considered: [place] virus, strep pharyngitis, allergic rhinitis, upper respiratory tract infection, sinusitis, rhinosinusitis, nasopharyngitis. viral pharyngitis, otitis media, otitis externa, pneumonia, bronchitis, viral cough syndrome, viral syndrome, and influenza. Exam findings show no acute concerns or changes; patient is non-toxic appearing and is in no distress. Patient is appropriate for outpatient treatment and follow-up. Lab Data Attestation: I reviewed the patient's lab results. Critical Care Time Critical Care Time Critical Care Time: No Discharge Plan Discharge Clinical Impression: Bronchitis Patient Disposition: Home, Self-Care Condition: Stable Instructions: Acute Bronchitis (ED) Additional Instructions: Your x-ray is negative, you do not have pneumonia Your rapid strep swab was negative today at [facility]. A throat culture will be sent to the laboratory for further testing. If the test is positive, you will receive a phone call within 48 hours and an appropriate antibiotic will be initiated at that time. Your symptoms are likely due to a viral illness or bronchitis, which is not treated with antibiotics. Viral symptoms can be present for up to a few weeks. -Alternate Tylenol and Motrin per package directions for fever or pain. -Antihistamine medication such as Benadryl at night and Zyrtec during the day can help improve symptoms. -Eat and drink things that are easy to swallow, like tea or soup, or popsicles to suck on. -Oral rinses such as: Salt water gargles and/or may use topical anesthetic (eg. Chloraseptic spray) or lozenges to relieve dryness or throat pain). -Frequent hand washing or hand flight simulator teacher is one of the best ways to prevent spread of infection. -Follow up with primary care provider in 2-3 days if condition is not improving; or seek ER visit if you have trouble breathing, cannot drink enough fluids, have muffled voice, difficulty opening your mouth, or severe swelling. Prescriptions: New methylprednisolone [Medrol (Patrice)] 4 mg tablets,dose pack See Rx Instructions .ROUTE .COMPLEX Qty: 21 0RF Rx Instructions: orally per package directions dextromethorphan-guaifenesin [Mucinex DM] 60-1,200 mg tablet extended release 12 hr 1 tablet PO Q12H Qty: 12 0RF Follow-up/Referrals: Ricardo Horowitz MD [Primary Care Provider] -
[2024-08-25 19:43] LABS: EDSTREPNEGPOS1 Negative (Negative)
== END 2024-08-25 19:42 | disposition home or self-care (01) ==
PROVIDERS: Emergency Provider Nurse Practitioner; PCP Emergency Medicine
DX: J40 Bronchitis, not specified as acute or chronic (principal); E66.01 Morbid (severe) obesity due to excess calories; Z68.38 Body mass index [BMI] 38.0-38.9, adult
CPT/HCPCS: 71046; 87081; 87880; 99213; G0463

== ENCOUNTER 2024-09-07 08:05 | Emergency (ER) | payer OTHER, SELFPAY ==
--- NOTE | 2024-09-07 08:57 | ED.WOUNDLAC ---
HPI - Wound/Laceration General Chief Complaint: Skin/Abscess/Foreign Body Stated Complaint: she had a needle stuck in her finger Source: patient and RN notes reviewed Mode of arrival: ambulatory Limitations: no limitations Related Data Allergies Allergy/AdvReac Type Severity Reaction Status Date / Time valacyclovir Allergy Mild Hives Verified 09/07/24 09:12 Review of Systems Review of Systems: CONSTITUTIONAL: Denies malaise, chills, sweats, or fever. SKIN: Reports laceration MUSCULOSKELETAL: Denies muscle skeletal pain NEUROLOGIC: Denies numbness, weakness All systems reviewed & are unremarkable except as noted in HPI and below PMFSH Past Medical History Medical History Herpes simplex type 1 infection History of vaginal delivery Morbid obesity Surgical History Surgical History History of delivery [place] teeth removed Family History Family History Father Depression Mother Diabetes mellitus Grandparent No problems noted. Social History Social History Smoking status: Never smoker Second hand tobacco smoke exposure: No Alcohol intake: never Substance use: never Substance use type: does not use Lack of Transportation: No Lack of Food: Never True Current Housing: I Have Housing Concerned About Future Housing: No Difficulty Paying Gas/Electric Bills: No Difficulty Paying for Meds: No Currently Unemployed: No Education: Bachelor's Degree Difficulty w/ Childcare or Family Care: No Gender identity (if verbalized by the patient): Female Spiritual care concerns: No Comments At time of signature, agree with nursing past medical, surgical, social and family history. There is no relevant family history pertinent to the presenting complaint Exam Narrative: GENERAL: Well-appearing, well-nourished, and in no acute distress. HEAD: Normocephalic EYES: PERRLA, conjunctivae clear NECK: Supple. CHEST: Speaks in full sentences. No respiratory distress. HEART: Regular rate and rhythm. Normal and equal peripheral pulses. EXTREMITIES: Right/Left hand and digits of hand have normal strength and sensation. 5/5 strength with digit flexion, extension. Range of motion normal. No clubbing, cyanosis, or edema noted. No tenderness. Skin intact. Normal digital cascade with flexion of fingers, median, ulnar and radial nerve intact. Normal sensation of each side of finger. Can perform 'okay' sign, 'cross over finger test of index and middle fingers' and 'thumbs up' sign. No scissoring. Normal thumb opposition. Good capillary refill and radial pulse. Distal capillary refill less than 3 seconds. Patient is right/left hand dominant SKIN: Warn, dry, intact, pink. No rash NEURO: Alert and oriented x3. PSYCH: Normal mood and affect Course Course Emergency Course: Patient is aware of diagnosis, understands and agrees to treatment plan. Anticipatory guidance given. Patient agrees to follow-up as directed and is aware of reasons to seek care at the emergency department. Portions of this record may have been created with voice recognition software Level of Care: Express Care Visit Vital Signs Vital signs: Reviewed. MDM - Wound/Laceration MDM Narrative Medical decision making narrative: Wound explored for foreign body and copious irrigation provided with no evidence of FB. Discussed the potential of retained foreign body with the patient and signs/symptoms that should prompt the patient to immediately go to the ED for reevaluation. The laceration was identified to be [XXX] cm in length and located at [XXX]. The laceration was cleansed with [XXX] and no debris was noted. Local anesthesia was obtained by injecting 1% lidocaine at the laceration site. The laceration was then irrigated with 500cc of high-pressure irrigation. The wound was explored and no foreign bodies were found. There was no evidence of tendon or nerve lacerations. The wound was closed with [ XXX suture type, number, and technique]. A sterile dressing was then applied and anticipatory guidance was provided. Tetanus prophylaxis [(was/was not)] given Differential Diagnosis Differential diagnosis: Likely laceration, abrasion and avulsion of skin Critical Care Time Critical Care Time Critical Care Time: No Discharge Plan Discharge Patient Disposition: Left Without Being Seen Patient Language: Nigerien Follow-up/Referrals: Ricardo Horowitz MD [Primary Care Provider] -
== END 2024-09-07 09:28 | disposition left against medical advice (07) ==
PROVIDERS: Emergency Provider Nurse Practitioner; PCP Emergency Medicine
DX: S61.231A Puncture wound without foreign body of left index finger without damage to nail, initial encounter (principal); W46.0XXA Contact with hypodermic needle, initial encounter
CPT/HCPCS: 99199

== ENCOUNTER 2024-11-01 14:35 | Emergency (ER) | payer OTHER, SELFPAY ==
--- OUTSIDE RECORDS SUMMARY | 2024-11-01 15:27 | XMS_ITS | Clinical Summary ---
Author Organization [facility] Address [address] [place] [address]. [place] [address] [place] [address] Care Team Providers Care Network Contractor Name Role Phone Elroy George MD Primary Care Provider [phone] Allergies No known active allergies Medications vitamin (VINATE M) 27-1 MG Tab tablet Take 1 tablet by mouth daily. Active aspirin EC 81 MG tablet Take 1 tablet (81 mg total) by mouth daily. Active ondansetron (ZOFRAN-ODT) 4 MG disintegrating tablet Take 1 tablet (4 mg total) by mouth every 8 (eight) hours as needed for Nausea. 20 tablet 3 Active raltegravir (ISENTRESS) 400 MG tablet Take 1 tablet (400 mg total) by mouth 2 (two) times daily. 60 tablet 3 Active emtricitabine-tenof ovir (TRUVADA) 200-300 MG tablet Take 1 tablet by mouth daily. 30 tablet 3 Active Social History Tobacco Use Types Packs/Day Years Used Date Smoking Tobacco: Never Smokeless Tobacco: Never Tobacco Cessation:Counseling Given: Not Answered Alcohol Use Standard Drinks/Week Comments Never 0 (1 standard drink = 0.6 oz pur e alcohol) Estimated Date of Delivery Comme nts Yes 02/22/2023 Sex and Gender Information Value Date Recorded Sex Assigned at Not on file Legal Sex Female 3:51 PM CDT Gender Identity Not on file Sexual Orientation Not on file Last Filed Vital Signs Vital Sign Reading Time Taken Comments Blood Pressure 136/82 01/30/2023 4:30 PM CDT Pulse 100 01/30/2023 4:00 PM CDT Temperature 36.5 ??C (97.7 ??F) 01/30/2023 4:00 PM CD T Respiratory Rate 16 01/30/2023 4:00 PM CDT Oxygen Saturation 100% 01/30/2023 4:30 PM CDT Inhaled Oxygen Concentration - - Weight 142.9 kg (315 lb) 01/30/2023 4:00 PM CDT Height 167.6 cm (5' 6 ) 01/30/2023 4:00 PM CDT Body Mass Index 50.84 01/30/2023 4:00 PM CDT Plan of Treatment Health Maintenance Due Date Last Done Comments Cervical Cancer Screening Pa p Smear (Age 21 to 29) Every 3 Years 1998 Cervical Cancer Screening 1998 Annual Physical 2001 HPV Vaccines (1 - 3-dose series) 2013 Hepatitis B Vaccines (1 of 3 - 19+ 3-dose series) 2017 COVID-19 Vaccine (2023-2 5 season) 2024 06/11/2021, 05/02/2021 Influenza Adult (#1) 2024 DTaP, Tdap and Td Vaccines ( 3 - Td or Tdap) 01/23/2033 01/23/2023, 05/01/2012 RSV Immunization or 60+ Years (1 - 1-dose 75+ series) 2073 Meningococcal Vaccine Completed 02/15/2015 , 05/14/2013 Hepatitis C Completed 01/30/2023 Meningococcal B Vaccine Aged Out No l onger eligible based on patient's age to complete this topic Pneumococcal Vaccine: Pediatrics (0 to 5 Years) and At-Risk Patients (6 to 64 Years) Aged Out No longer eligible b ased on patient's age to complete this topic RSV Immunizations Under 20 Months Aged Out No longer eligible b ased on patient's age to complete this topic Procedures Procedure Name Priority Date/Time Associated Diagnosis Comments HEPATITIS PANEL,ACUTE STAT 01/30/2023 4:14 PM CDT from Last 3 Months or Most Recently Relevant to Health Maintenance Results * HEPATITIS PANEL,ACUTE (01/30/2023 4:14 PM CDT) HEPATITIS B SURFACE AG NON-REACTI VE NON-REACTI VE 01/30/2023 7:19 PM CDT [facility] HEP B CORE IGM NON-REACTI VE NON-REACTI VE 01/30/2023 7:49 PM CDT [facility] HAV IGM NON-REACTI VE NON-REACTI VE 01/30/2023 7:50 PM CDT [facility] HEPATITIS C AB NON-REACTI VE NON-REACTI VE 01/30/2023 7:48 PM CDT [facility] 01/30/2023 4:14 PM CDT Roger Humphreys MD LABORATORY Final Re sult [facility] [address] [place] [address], from Last 3 Months or Most Recently Relevant to Health Maintenance Insurance [employer] Care Teams Network Contractor Relationship Specialty Start Date End Date Elroy George MD [facility] [address] [place] [address] PCP - General UNKNOWN PHYSICIAN SPECIALTY 01/30/23
--- OUTSIDE RECORDS SUMMARY | 2024-11-01 15:27 | XMS_ITS | Referral Summary ---
Author Organization [facility] Address [address] [place] [address] Care Team Providers Care Dry Cleaning Teacher Name Role Phone Ricardo Horowitz MD Primary Care Provider [phone] Source Comments [facility],non-owned Affiliates and Associated Physician Practices is amultiple site organization consisting of ambulatory clinics and hospital sitesin [place], [place], [place] and [place]. This disclosure is being madepursuant to the Care Everywhere program and may not contain all information available regarding this patient. Last updated 18.[facility] Encounters Date Type Department Care Team Description 10/26/2024 Travel from Last 3 Months Allergies No known active allergies Medications * Be aware that medications may not be up to date on this document. Alwaysverify current medications with the patient. Medication Sig Dispensed Refills Start Date End Date Status acyclovir (ZOVIRAX) 400 MG tablet Take 1 (one) tablet by mouth 2 times daily 06/05/2021 Active Active Problems Problem Noted Date Diagnosed Date Melasma 02/17/2024 Social History Tobacco Use Types Packs/Day Years Used Date Smoking Tobacco: Never Smokeless Tobacco: Never Alcohol Use Standard Drinks/Week Comments Yes 0 (1 standard drink = 0.6 oz pur e alcohol) rarely Sex and Gender Information Value Date Recorded Sex Assigned at Not on file Gender Identity Not on file Sexual Orientation Not on file Last Filed Vital Signs Vital Sign Reading Time Taken Comments Blood Pressure 129/87 07/11/2021 11:04 AM CDT Pulse 77 07/11/2021 11:04 AM CDT Temperature 36.8 ??C (98.2 ??F) 07/11/2021 11:04 AM C DT Respiratory Rate 18 07/11/2021 11:04 AM CDT Oxygen Saturation 99% 07/11/2021 11:04 AM CDT Inhaled Oxygen Concentration - - Weight 134.7 kg (297 lb) 07/11/2021 11:04 AM CDT Height 168.9 cm (5' 6.5 ) 07/11/2021 11:04 AM CD T Body Mass Index 47.22 07/11/2021 11:04 AM CDT Plan of Treatment Upcoming Encounters Date Type Department Care Team (Late st Contact Info) Description 02/03/2025 1:30 PM CDT Office Visit [facility] - Dermatology [address] [place] [address], [facility] [place] [address] Misael Durand MD [address] [place] [address] DEPT OF DERMATOLOGY [address] [place] [phone] Care Teams Dry Cleaning Teacher Relationship Specialty Start Date End Date Ricardo Horowitz MD [address] [place] [address] PCP - General Family Medicine 02/17/24
--- OUTSIDE RECORDS SUMMARY | 2024-11-01 15:27 | XMS_ITS | Clinical Summary ---
Author Organization [facility] Address [address] [facility] [place] [address] Care Team Providers Care Barrel Bung Remover And Dumper Name Role Phone Ricardo Horowitz MD Primary Care Provider [phone] Source Comments [facility],non-owned Affiliates and Associated Physician Practices is amultiple site organization consisting of ambulatory clinics and hospital sitesin [place], [place], [place] and [place]. This disclosure is being madepursuant to the Care Everywhere program and may not contain all information available regarding this patient. Last updated 18.[facility] Allergies No known active allergies Medications * Be aware that medications may not be up to date on this document. Alwaysverify current medications with the patient. Medication Sig Dispensed Refills Start Date End Date Status acyclovir (ZOVIRAX) 400 MG tablet Take 1 (one) tablet by mouth 2 times daily 06/05/2021 Active Active Problems Problem Noted Date Diagnosed Date Melasma 02/17/2024 Encounters Date Type Department Care Team Description 10/26/2024 Travel from Last 3 Months Family History Medical History Relation Name Comments Arthritis - Rheumatoid Maternal Grandmother Diabetes - Type 2 Mother Seizures Mother Cancer - Other Paternal Grandmother Relation Name Status Comments Maternal Grandmother Mother Paternal Grandmother Other Social History Tobacco Use Types Packs/Day Years [...] Office Visit [facility] - Dermatology [address] [place] [address], [facility] [place] [address] Misael Durand MD [address] [place] [address] DEPT OF DERMATOLOGY [address] [place] [phone] Health Maintenance Due Date Last Done Comments PAP SMEAR 1998 HIV SCREENING 2013 HPV VACCINE (1 - 3-dose series) 2013 HEPATITIS C SCREENING 02/05/2016 DTAP/TDAP/TD VACCINES (1 - Tdap) 2017 HEPATITIS B VACCINE (1 of 3 - 19+ 3-dose series) 2017 COVID-19 VACCINE (1 - 2023-2 5 season) 2024 INFLUENZA VACCINE (#1) 2024 DEPRESSION SCREENING 09/29/2024 ZOSTER VACCINE (1 of 2) 02/10/2048 HIB VACCINE Aged Out No longer eligi ble based on patient's age to complete this topic MENINGOCOCCAL (Group B) VACCINE Aged Out No longer eligible based on patient's age to complete this topic MENINGOCOCCAL VACCINE Aged Out No cynthia flor eligible based on patient's age to complete this topic PNEUMOCOCCAL VACCINE Aged Out No long er eligible based on patient's age to complete this topic Care Teams Barrel Bung Remover And Dumper Relationship Specialty Start Date End Date Ricardo Horowitz MD [address] [place] [address] PCP - General Family Medicine 02/17/24
--- OUTSIDE RECORDS SUMMARY | 2024-11-01 15:27 | XMS_ITS | Patient Health Summary ---
Author Organization [facility] Address [address] [place] [address] Care Team Providers Care Sales Support Manager Name Role Phone Ricardo Horowitz MD Primary Care Provider [phone] Note [address] [facility],non-owned Affiliates and Associated Physician Practices is amultiple site organization consisting of ambulatory clinics and hospital sitesin [place], [place], [place] and [place]. This disclosure is being madepursuant to the Care Everywhere program and may not contain all information available regarding this patient. Last updated 18.[facility] Allergies No known active allergies Medications * Be aware that medications may not be up to date on this document. Alwaysverify current medications with the patient. * acyclovir (ZOVIRAX) 400 MG tablet(Started 06/05/2021) Take 1 (one) tablet by mouth 2 times daily Active Problems Problem Noted Date Diagnosed Date [...] Mass Index 47.22 07/11/2021 11:04 AM CDT Care Teams Sales Support Manager Relationship Specialty Start Date End Date Ricardo Horowitz MD [address] [place] [address] PCP - General Family Medicine 02/17/24
--- OUTSIDE RECORDS SUMMARY | 2024-11-01 15:27 | XMS_ITS | Continuity of Care Document ---
Author Organization [facility] Address [address] [place] [address] Phone Care Team Providers Care Leadite Heater Name Role Phone Ricardo Horowitz MD Unavailable Unavailable Allergies, Adverse Reactions, Alerts Substance Reaction Status Criticality No Known Allergies Active No Inform ation Medications Medication Instructions Dosage Effective Dates (start - stop) Status Comments clotrimazole-betameth asone 1 %-0.05 % topical cream apply by topical route 2 times every day for 2 weeks to the affected and surrounding areas of skin in the morning and evening 0.00 - Active Procedures Procedure Date OFFICE/OUTPATIENT VISIT, EST OFFICE/OUTPATIENT VISIT, EST PREV VISIT, EST, AGE 18-39 OFFICE/OUTPATIENT VISIT, EST PREV VISIT, EST, AGE 18-39 OFFICE/OUTPATIENT VISIT, EST PREV VISIT, EST, AGE 18-39 OFFICE/OUTPATIENT VISIT, EST PREV VISIT, EST, AGE 18-39 OFFICE/OUTPATIENT VISIT, EST PREV VISIT, NEW, AGE 18-39 OFFICE/OUTPATIENT VISIT, NEW Advance Directives Directive Yes / No Effective Date File Name No Information Encounters Encounter Description Practice Location Reason(s) For Visit Diagnoses Date Provider Providers Copied on Encounter [facility], [facility] [place], [id number], [place] tel:[phone] [facility] No Information Carlos Manuel Silva. [address], [place], [place], [address] , [place]. tel:[phone] OFFICE/OUTPA TIENT VISIT, EST [facility], [address], [place], [place], [address], [place] tel:[phone] [facility] itching (chief complaint) skin (chief complaint) sTD (chief complaint) Athlete's footNevus, non-neoplasticLeuko rrhea NOS 4 Carlos Manuel Silva. [address], [place], [place], [address] , [place]. tel:[phone] OFFICE/OUTPA TIENT VISIT, EST [facility], [address], [place], [place], [address], [place] tel:[phone] [facility] itching1 (chief complaint) obesity1 (chief complaint) Abnormal weight gainAthlete's foot 4 Carlos Manuel Silva. [address], [place], [place], [address] , [place]. [phone] PREV VISIT, EST, AGE 18-39 [facility], [address], [place], [place], [address], [place] tel:[phone] [facility] physical (chief complaint) Encounter for general adult medical examination without abnormal findings 4 Carlos Manuel Silva. [address], [place], [place], [address] , [place]. tel:[phone] OFFICE/OUTPA TIENT VISIT, EST [facility], [address], [place], [place], [address], [place] tel:[phone] [facility] weight gain1 (chief complaint) headache1 (chief complaint) STD (chief complaint) face (chief complaint) Encounter for STD screeningAbnormal weight gainHeadacheNevus, non-neoplastic 4 Carlos Manuel Silva. [address], [place], [place], [address] , [place]. tel:[phone] PREV VISIT, EST, AGE 18-39 [facility], [address], [place], [place], [address], [place] tel:[phone] [facility] physical1 (chief complaint) Encounter for general adult medical examination without abnormal findings 3 Carlos Manuel Rodrigues [address], [place], [place], [address] , [place]. tel:[phone] OFFICE/OUTPA TIENT VISIT, EST [facility], [address], [place], [place], [address], [place] tel:[phone] [facility] HTN (chief complaint) high T (chief complaint) obesity1 (chief complaint) Abnormal weight gainEssential (primary) hypertensionAndroge n excess 2 Calros Manuel Rodrigues [address], [place], [place], [address] , [place]. tel: [phone] PREV VISIT, EST, AGE 18-39 [facility], [address], [place], [place], [address], [place] tel:[phone] [facility] physical (chief complaint) Encounter for general adult medical examination without abnormal findings 2 Carlos Manuel Rodrigues [address], [place], [place], [address] , [place]. tel:[phone] OFFICE/OUTPA TIENT VISIT, EST [facility], [address], [place], [address], [place] tel:[phone] [facility] breast1 (chief complaint) abd pain1 (chief complaint) STD (chief complaint) Encounter for STD screeningBody mass index [BMI]40.0-44.9, adultAbdominal painHypertrophy of breastLumbago 0 1 Carlos Manuel Rodrigues [address], [place], [place], [address] , [place]. tel:[phone] PREV VISIT, EST, AGE 18-39 [facility], [address], [place], [place], [address], [place] tel:[phone] [facility] physical (chief complaint) Encounter for general adult medical examination without abnormal findings 0 Carlos Manuel Silva. [address], [place], [place], [address] , [place]. tel:[phone] OFFICE/OUTPA TIENT VISIT, EST [facility], [address], [place], [place], [address], [place] tel:[phone] [facility] STD (chief complaint) Chlamydial vulvovaginitis 9 Carlos Manuel Silva. [address], [place], [place], [address] , [place]. [phone] Referring Provider: Kely Candelaria [address] [facility] [address], [place], [place], [address]. tel:[phone] PREV VISIT, NEW, AGE 18-39 [facility], [address], [place], [place], [address], [place] tel:[phone] [facility] PHysical (chief complaint) Encounter for general adult medical exam w abnormal findingsRashFollicu lar cyst of skinChlamydial vulvovaginitis 8 Carlos Manuel Silva. [address], [place], [place], [address] , [place]. tel:[phone] Referring Provider: [address], [place], [place], [address]. tel:[phone] Family History Family Member Type Diagnosis Age At Onset Mother Problem (finding) Seizure disorder Sister Problem (finding) Alive and well Father Problem (finding) schizophrenia Mother Problem (finding) Diabetes mellitus Payers Payer name Insurance type Covered alliance party ID Authoriza tion(s) No Information Social History Type Description Quantity Date Captured Comments Alcohol Use Details Unknown Caffeine Use Details Unknown Tobacco Use Status No Information Smoking Status No Information Sex Female Chief Complaint And Reason For Visit No Information Plan Of Treatment Date Type Action Status Goal Special diet education compl eted Goal Prescribed dietary intake co mpleted Referral Ordered: Dermatology (related to Nevus, non-neoplastic) ordered Referral Ordered: Dermatology (related to Nevus, non-neoplastic) ordered Referral Ordered: Referrals: Dermatology. Evaluate and treat ordered Referral Ordered: Nicci Hoskins -[facility] : Surgery (related to Abnormal weight gain) ordered Referral Referred To: Nicci Hoskins [address] [place], [place], [id number] Ordered: Referrals: [facility] : Surgery. Nicci Hoskins. Evaluate and treat ordered Referral Ordered: Richard Domingo -[facility] : Plastic Surgery (related to Hypertrophy of breast) ordered Referral Referred To: Richard Domingo [address] [place], [place], [phone] Ordered: Referrals: [facility] : Plastic Surgery. Richard Domingo. Evaluate and treat ordered Referral Ordered: [facility] HIDA (HEPATOBILIARY) SCAN ordered Referral Ordered: Nataliia Paula -[facility] : Dermatology (related to Rash) ordered Referral Referred To: Nataliia Paula [address] [place], [place] [phone] Ordered: Referrals: [facility] : Dermatology. Nataliia Paula. Evaluate and treat ordered History Of Present Illness Encounter Date Complaint History Of Prese nt Illness itching Pt c/o diffuse i tchy foot on both side for several months Pt denies any visible rash Pt denies any paresthesia. Pt had lab done which was all normal. Her insurance does not cover for lotrisone sTD Pt has multiple sex partners and she wants GC/chlamydia checked Pt denies any urinary symptoms. Pt denies any vaginal discharge or pelvic pain skin Pt notices a whi te appearing slightly irritating lesion on right side of her nose for several months Pt denies any bleeding or scab Pt notices mild irritation sometimes. pt denies any size change itching1 Pt c/o diffuse i tchy foot on both side for several months Pt denies any visible rash Pt denies any paresthesia. Pt had lab done which was all normal obesity1 Pt is morbidly o bese .Pt had lab done which were all normal. Pt has difficulty losing weight physical Pt needs annual physical. Pt is morbidly obese. Pt failed diet and exercise Pt c/o some itching around both palm and foot for several weeks Pt denies any rash Pt denies any itching or rash rest of body Pt denies any sick contact .Pt does gets hand wet a lot while at work. Pt denies any other complaints weight gain1 Pt is obese. Pt keeps gaining weight. Pt failed diet and exercise. headache1 Pt has her tooth pulled and her headache resolved. Pt is off topamax. face Pt notices a sma ll pearly appearing lesion right side of nose for several months Pt denies any bleeding ,size change of pain or itching .Pt denies any pigmentation. STD Pt wants STD scr eening Pt does have ? HSV I or II. Pt supposes to takes acyclovir but she has not done so Pt states that she has outbreak twice per year around vaginal area when she is stressed. Pt denies any acute symptoms.. 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 Pt denies any acute outbreak. Pt denies any vaginal discharge or pelvic pain or bleeding physical1 Pt needs annual physical pt has recurrent left lower tooth pain due to decay and she has carmelita for root canal in 3 weeks. Pt c/o acute onset of left lower tooth pain since last night Pt denies any facial swelling Pt wants some abx. Pt c/o throbbing and pressure and sharp pain around left eye and left temporal area since 4 weeks ago. Pt denies any headache in the past. Pt denies any head injury ,Pt denies waking up at night with headache. Pt denies any trigger factor. Pt has headache daily. Pt denies any trigger or alleviating factor Pt denies any nausea or photophobia. Pt states that tylenol does help with her headache. pT HAS 3/10 headache. HTN Pt checked her b p at home and is around 130/70. pt denies any chest pain or headache. high T Pt has borderlin e high T level but free T is ok. Pt denies any hirsutism. Pt denies irregular period. Pt does have difficulty conceiving. pt denies any pelvic pain. obesity1 Pt is morbidly o bese. her BMI is approaching 50. Her labs are unremarkable. Pt is very sedentary physical Pt needs annual physical. Pt gained a lot of weight since 2019 Pt had childbirth 2019 and she gained total of 60 pounds since 2017. Pt states that majority of weight gain is since 2019 Pt is not on any diet and she has not been exercising at all. Pt denies any polyuria, polydipsia. Pt has mild HTn today Pt denies any polyuria, polydipsia. Pt is concerned about DM since her mom has DM . Pt denies any chest pain or headache Pt denies any edema or neuropathy Pt takes acyclovir daily for genital herpes. STD Pt denies any ST D symptoms. her GC/chlamydia were negative breast1 Pt has [address] size causing midback and upper shoulder pain for several years. Pt denies any injury ,Pt denies any breast pain or any discoloration ,Pt wants to discuss breast reduction surgery. abd pain1 Pt states that a bdominal pain completely resolved. Pt denies any nausea, vomiting, GERD, early satiety, weight loss, diarrhea, blood in stool. Upper GI was normal .Pt did not do HIDA scan sine pain resolved . physical Pt needs annual physical. Pt c/o acute and intermittent left upper quadrant abdominal pain since two weeks ago. Pt denies any injury. Pt c/o sharp pain. Pt did feel nausea several days ago but not anymore. Pt denies any vomiting Pt denies any blood in stool or diarrhea. Pt denies any injury. Pt has been holding her baby with left arm recently. Pt denies any GERD Pt states that she has intermittent postprandial pain as well. Pt denies any appetite loss Pt was given ibuprofen from hospital which did help ,Pt states that she has not had any pain for two days or so. pt denies any weight loss, early satiety. Pt denies any other complaints Pt denies any pain radiating to her back. pt has not had any pain for two days. Pt also wants GC/chlamydia check PT denies any pelvic pain or urinary symptoms. STD Pt had unprotect ed sex last week. Pt wants STD screening Pt denies any pelvic pain, bleeding or vaginal discharge. Pt denies any fever. Pt is not aware of any STD from her partner. Pt did not use condom. Pt denies any abdominal pain or Urinary symptoms PHysical Pt needs annual physical. Pt states that she notices scattered ophthalmic nurse spots on her forearm for two years. pt denies any itching. pt notices worsening symptoms when she gets a lot of sun. Pt notices a small subcutaneous spot left forehead and it seems hurt when she pushes on it. Pt did tested positive for chlamydia during the summer. Pt was treated and she denies any symptoms now. Pt denies any vaginal bleeding or pelvic pain Pt wants full STD screening. Instructions Date Instruction Additional Infor lloyd Special diet education Related t o Body mass index (BMI) 40.0-44.9, adult Increase physical activity Relat ed to Chlamydial vulvovaginitis Weight management Related to Chl amydial vulvovaginitis Prescribed dietary intake Relate d to Body mass index (BMI) 38.0- 38.9, adult Assessments Type Assessment Date No Information
--- OUTSIDE RECORDS SUMMARY | 2024-11-01 15:27 | XMS_ITS | Clinical Summary ---
Author Organization [facility] Address [address] [place] [phone] Phone Care Team Providers Care Farmworker Animal Name Role Phone Unavailable Primary Care Provider Unavailabl e Social History Tobacco Use Types Packs/Day Years Used Date Smoking Tobacco: Never Assessed Comments Unknown Sex and Gender Information Value Date Recorded Sex Assigned at Not on file Legal Sex Female 3:20 PM [employer] Gender Identity Not on file Sexual Orientation Not on file Plan of Treatment Health Maintenance Due Date Last Done Comments HPV VACCINES (1 - 3-dose series) 2013 DTAP/TDAP/TD VACCINES (1 - Tdap) 2017 HEPATITIS B VACCINES (1 of 3 - 19+ 3-dose series) 2017 CERVICAL CANCER SCREENING 2019 INFLUENZA VACCINE (#1) 2024 PNEUMOCOCCAL VACCINE 0-64 YEARS Aged Out No longer eligible based on patient's age to complete this topic Insurance [id number]
--- OUTSIDE RECORDS SUMMARY | 2024-11-01 15:27 | XMS_ITS | Continuity of Care Document ---
Author Organization [facility] Address [address] [place] [address] Phone Care Team Providers Care Kitchen Food Server Name Role Phone Ricardo Horowitz MD Unavailable [...] Diagnoses Date Provider Providers Copied on Encounter [facility], [facility] [place], [address], [place] tel:[phone] [facility] No Information Carlos Manuel Silva. [address], [place], [place], [address] , [place]. tel:[phone] OFFICE/OUTPA TIENT VISIT, EST [facility], [address], [place], [place], [address], [place] tel:[phone] [facility] itching (chief complaint) skin (chief complaint) sTD (chief complaint) Athlete's footNevus, non-neoplasticLeuko rrhea NOS 4 Carlos Manuel iSlva. [address], [place], [place], [address] , [place]. tel:[phone] OFFICE/OUTPA TIENT VISIT, EST [facility], [address], [place], [place], [address], [place] tel:[phone] [facility] itching1 (chief complaint) obesity1 (chief complaint) Abnormal weight gainAthlete's foot 4 Carlos Manuel Silva. [address], [place], [place], [address] , [place]. [phone] PREV VISIT, EST, AGE 18-39 [facility], [address], [place], [place], [address], [place] tel:[phone] [facility] physical (chief complaint) Encounter for general adult medical examination without abnormal findings 4 Carlos Manuel Silva. [address], [place], [place], [address] , [place]. tel:[phone] OFFICE/OUTPA TIENT VISIT, EST [facility], [address], [place], [place], [address], [place] tel:[phone] [facility] weight gain1 (chief complaint) headache1 (chief complaint) STD (chief complaint) face (chief complaint) Encounter for STD screeningAbnormal weight gainHeadacheNevus, non-neoplastic 4 Carlos Manuel Silva. [address], [place], [place], [address] , [place]. tel:[phone] PREV VISIT, EST, AGE 18-39 [facility], [address], [place], [place], [address], [place] tel:[phone] [facility] physical1 (chief complaint) Encounter for general adult medical examination without abnormal findings 3 Carlos Manuel Rodrigues [address], [place], [place], [address] , [place]. tel:[phone] OFFICE/OUTPA TIENT VISIT, EST [facility], [address], [place], [place], [address], [place] tel:[phone] [facility] HTN (chief complaint) high T (chief complaint) obesity1 (chief complaint) Abnormal weight gainEssential (primary) hypertensionAndroge n excess 2 Carlos Manuel Rodrigues [address], [place], [place], [address] , [place]. tel: [phone] PREV VISIT, EST, AGE 18-39 [facility], [address], [place], [place], [address], [place] tel:[phone] [facility] physical (chief complaint) Encounter for general adult medical examination without abnormal findings 2 Carlos Manuel Rodrigues [address], [place], [place], [address] , [place]. tel:[phone] OFFICE/OUTPA TIENT VISIT, EST [facility], [address], [place], [place], [address], [place] tel:[phone] [facility] breast1 (chief complaint) abd pain1 (chief complaint) STD (chief complaint) Encounter for STD screeningBody mass index [BMI]40.0-44.9, adultAbdominal painHypertrophy of breastLumbago 0 1 Carlos Manuel Rodrigues [address], [place], [place], [address] , [place]. tel:[phone] PREV VISIT, EST, AGE 18-39 [facility], [address], [place], [place], [address], [place] tel:[phone] [facility] physical (chief complaint) Encounter for general adult medical examination without abnormal findings 0 Carlos Manuel Silva. [address], [place], [place], [address] , [place]. tel:[phone] OFFICE/OUTPA TIENT VISIT, EST [facility], [address], [place], [place], [address], [place] tel:[phone] [facility] STD (chief complaint) Chlamydial vulvovaginitis 9 Carlos Manuel Silva. [address], [place], [place], [address] , [place]. [phone] Referring Provider: Kely Candelaria [address] [facility] [address], [place], [place], [address]. tel:[phone] PREV VISIT, NEW, AGE 18-39 [facility], [address], [place], [place], [address], [place] tel:[phone] [facility] PHysical (chief complaint) Encounter for general adult medical exam w abnormal findingsRashFollicu lar cyst of skinChlamydial vulvovaginitis 8 Carlos Manuel Silva. [address], [place], [place], [address] , [place]. tel:[phone] Referring Provider: [address], [place], [place], [address]. tel:[phone] Family History Family Member Type Diagnosis Age At Onset Mother Problem (finding) Seizure disorder Sister Problem (finding) Alive and well Father Problem (finding) schizophrenia Mother Problem (finding) Diabetes mellitus Payers Payer name Insurance type Covered democrat ID Authoriza tion(s) No Information Social History [...] To: Nicci Hoskins [address] [place], [place], [phone] Ordered: Referrals: Allopathic & Osteopathic Physicians : Surgery. Nicci Hoskins. Evaluate and treat ordered Referral Ordered: Richard Domingo -Allopathic & Osteopathic Physicians : Plastic Surgery (related to Hypertrophy of breast) ordered Referral Referred To: Richard Domingo [address] [place], [place], [phone] Ordered: Referrals: Allopathic & Osteopathic Physicians : Plastic Surgery. Richard Domingo. Evaluate and treat ordered Referral Ordered: [facility] (HEPATOBILIARY) SCAN ordered Referral Ordered: Nataliia Paula -Allopathic & Osteopathic Physicians : Dermatology (related to Rash) ordered Referral Referred To: Nataliia Paula [address] [place], [place] [phone] Ordered: Referrals: Allopathic & Osteopathic Physicians : Dermatology. Nataliia Paula. Evaluate and treat ordered History Of Present Illness Encounter Date Complaint History Of Prese nt Illness sTD Pt has multiple sex partners and she wants GC/chlamydia checked Pt denies any urinary symptoms. Pt denies any vaginal discharge or pelvic pain itching Pt c/o diffuse i tchy foot on both side for several months Pt denies any visible rash Pt denies any paresthesia. Pt had lab done which was all normal. Her insurance does not cover for lotrisone skin Pt notices a whi te appearing slightly irritating lesion on right side of her nose for several months Pt denies any bleeding or scab Pt notices mild irritation sometimes. pt denies any size change obesity1 Pt is morbidly o bese .Pt had lab done which were all normal. Pt has difficulty losing weight itching1 Pt c/o diffuse i tchy foot on both side for several months Pt denies any visible rash Pt denies any paresthesia. Pt had lab done which was all normal physical Pt needs annual physical. Pt is morbidly obese. Pt failed diet and exercise Pt c/o some itching around both palm and foot for several weeks Pt denies any rash Pt denies any itching or rash rest of body Pt denies any sick contact .Pt does gets hand wet a lot while at work. Pt denies any other complaints STD Pt wants STD scr eening Pt [...] vaginal discharge or pelvic pain or bleeding face Pt notices a sma ll pearly appearing lesion right side of nose for several months Pt denies any bleeding ,size change of pain or itching .Pt denies any pigmentation. headache1 Pt has her tooth pulled and her headache resolved. Pt is off topamax. weight gain1 Pt is obese. Pt keeps gaining weight. Pt failed diet and exercise. physical1 Pt needs annual physical pt has [...] with her headache. pT HAS 3/10 headache. obesity1 Pt is morbidly o bese. her BMI is approaching 50. Her labs are unremarkable. Pt is very sedentary high T Pt has borderlin e high T level but free T is ok. Pt denies any hirsutism. Pt denies irregular period. Pt does have difficulty conceiving. pt denies any pelvic pain. HTN Pt checked her b p at home and is around 130/70. pt denies any chest pain or headache. physical Pt needs annual physical. Pt gained [...] physical. 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 [...] screening. Instructions Date Instruction Additional Infor lloyd Weight management Related to Chl amydial vulvovaginitis Increase physical activity Relat ed to Chlamydial vulvovaginitis Special diet education Related t o Body mass index (BMI) 40.0-44.9, adult Prescribed dietary intake Relate d to Body mass index (BMI) 38.0- 38.9, adult Assessments Type Assessment Date No Information
[2024-11-01 15:32] VITALS: BP 133/67; PULSE 84; RESP 16; TEMP 36.4; O2SAT 100
[2024-11-01 15:51] LABS: EDSTREPNEGPOS1 Negative (Negative)
--- NOTE | 2024-11-01 15:52 | ED_ITS ---
HPI - General Adult General Chief complaint: Upper Respiratory Infection Stated complaint: Sore throat History of Present Illness HPI narrative: Cesar Drake Is a 24-year-old female presents today with complaints of having a sore throats, mild cough for the past 2 days. She denies having fevers denies shortness of breath and chest pain denies body aches just wanted to be checked. She is not on any medications daily denies having any past medical history. Related Data Allergies Allergy/AdvReac Type Severity Reaction Status Date / Time valacyclovir Allergy Mild Hives Verified 11/01/24 15:43 Review of Systems Review of Systems: All systems reviewed & are unremarkable except as noted in HPI and below PMFSH Past Medical History Medical History History of vaginal delivery Herpes simplex type 1 infection Morbid obesity Surgical History Surgical History History of delivery [place] teeth removed Family History Family History Father Depression Mother Diabetes mellitus Grandparent No problems noted. Social History Social History Smoking status: Never smoker Second hand tobacco smoke exposure: No Alcohol intake: never Substance use: never Substance use type: does not use Lack of Transportation: No Lack of Food: Never True Current Housing: I Have Housing Concerned About Future Housing: No Difficulty Paying Gas/Electric Bills: No Difficulty Paying for Meds: No Currently Unemployed: No Education: Bachelor's Degree Difficulty w/ Childcare or Family Care: No Gender identity (if verbalized by the patient): Female Spiritual care concerns: No Exam Narrative: GENERAL: Well-appearing, well-nourished, and in no acute distress. HEAD: Normocephalic, atraumatic. EYES: PERRLA and EOMI. ENT: Nares clear, no rhinorrhea or epistaxis. Mucous membranes moist. Oropharynx without tonsillar hypertrophy +3, no exudate or other lesions. Bilateral TMs pearly murphy non bulging NECK: Supple. No adenopathy or masses. No carotid bruits or JVD CHEST: Clear to auscultation. No respiratory distress. No wheezes rales or rhonchi HEART: Regular rate and rhythm. No murmur heard. Normal peripheral pulses. EXTREMITIES: Normal range of motion. No edema. SKIN: Warm, dry, no rash. NEURO: No focal deficits. Alert and oriented x3. PSYCH: Normal mood and affect. Course Course Level of Care: Express Care Visit Vital Signs Vital signs: Vital Signs Temperature 36.4 C 11/01/24 15:32 Pulse Rate 84 11/01/24 15:32 Respiratory Rate 16 11/01/24 15:32 Blood Pressure 133/67 11/01/24 15:32 Pulse Oximetry 100 11/01/24 15:32 Oxygen Delivery Room Air 11/01/24 15:32 Temperature 36.4 C 11/01/24 15:32 Pulse Rate 84 11/01/24 15:32 Respiratory Rate 16 11/01/24 15:32 Blood Pressure 133/67 11/01/24 15:32 Pulse Oximetry 100 11/01/24 15:32 Oxygen Delivery Room Air 11/01/24 15:32 Medical Decision Making MDM Narrative Medical decision making narrative: ED COURSE AND MEDICAL DECISION MAKING: This 24 year old patient presents with symptoms most suggestive of viral upper respiratory tract infection. Lungs are clear bilaterally without any respiratory distress or accessory muscle use. Checking Covid /Flu/Strep - Negative Patient is discharged home in stable condition with expectant management. Return precautions were provided. Procedures: Pulse oximetry interpretation - not hypoxic. Review of medical records. DISPOSITION: Discharged home in stable condition. IMPRESSION: Acute upper respiratory tract infection, likely viral. Vital Signs Vital Signs: Vital Signs Temperature 36.4 C 11/01/24 15:32 Pulse Rate 84 11/01/24 15:32 Respiratory Rate 16 11/01/24 15:32 Blood Pressure 133/67 11/01/24 15:32 Pulse Oximetry 100 11/01/24 15:32 Oxygen Delivery Room Air 11/01/24 15:32 Temperature 36.4 C 11/01/24 15:32 Pulse Rate 84 11/01/24 15:32 Respiratory Rate 16 11/01/24 15:32 Blood Pressure 133/67 11/01/24 15:32 Pulse Oximetry 100 11/01/24 15:32 Oxygen Delivery Room Air 11/01/24 15:32 Vitals reviewed by me Lab Data Lab results reviewed: Yes I reviewed the patient's lab results. Labs: Lab Results 11/01/24 11/01/24 Range/Units 15:35 15:49 POC SARS CoV-2 Ag Pending POC Grp A Strep Screen Negative (Negative) Discharge Plan Discharge Clinical Impression: Acute upper respiratory infection Patient Disposition: Home, Self-Care Condition: Stable Instructions: Antibiotic Form Additional Instructions: Continue to push oral hydration/ drinking water/ Gatorade/ popsicles Warm tea with honey Salt water gargle to help with pain and inflammation Follow up with your PCP in 3-5 days to ensure you are improving If you develop any worsening symptoms or concerns proceed to the ER Patient Language: Singaporean Follow-up/Referrals: Ricardo Horowitz MD [Primary Care Provider] - Stand Alone Forms: Work/School Release IP Time of Disposition: 16:02
[2024-11-01 15:56] LABS: EDCOVIDSCREEN Negative (Negative)
[2024-11-01 15:58] LABS: EDINFLUASCREEN Negative (Negative); EDINFLUBSCREEN Negative (Negative)
== END 2024-11-01 16:03 | disposition home or self-care (01) ==
PROVIDERS: Emergency Provider Nurse Practitioner Family; PCP Emergency Medicine
DX: J06.9 Acute upper respiratory infection, unspecified (principal); Z20.822 Contact with and (suspected) exposure to COVID-19
CPT/HCPCS: 87081; 87426; 87804; 87880; 99213; G0463

== ENCOUNTER 2024-12-02 09:05 | Emergency (ER) | payer OTHER, SELFPAY ==
--- NOTE | 2024-12-02 09:11 | ED_ITS ---
HPI - URI/Sore Throat General Chief Complaint: Upper Respiratory Infection Stated Complaint: FLU LIKE Time Seen by Provider: 12/02/24 09:15 Source: patient Mode of arrival: ambulatory Limitations: no limitations History of Present Illness HPI Narrative: Cesar is a 24-year-old female patient presenting to the clinic today with complaints of flu-like symptoms. She reports she has got feeling feverish, headache, nasal congestion, cough, fatigue, and dizziness x1 day. She reports her symptoms started yesterday. Has been taking TheraFlu for her symptoms. Denies any chest pain or shortness of breath. MD elicited complaint: fever, cough, nasal congestion and other (Headache) Related Data Allergies Allergy/AdvReac Type Severity Reaction Status Date / Time valacyclovir Allergy Mild Hives Verified 12/02/24 09:29 Review of Systems Review of Systems: Pertinent positives per HPI. Patient denies any fever, chills, rash, visual changes, dizziness, shortness of breath, chest pain, palpitations, nausea, vomiting, diarrhea, constipation, abdominal pain, or any urinary issues. [facility] Past Medical History Medical History History of vaginal delivery Herpes simplex type 1 infection Morbid obesity Surgical History Surgical History History of delivery [place] teeth removed Family History Family History Father Depression Mother Diabetes mellitus Grandparent No problems noted. Social History Social History Smoking status: Never smoker Second hand tobacco smoke exposure: No Alcohol intake: never Substance use: never Substance use type: does not use Lack of Transportation: No Lack of Food: Never True Current Housing: I Have Housing Concerned About Future Housing: No Difficulty Paying Gas/Electric Bills: No Difficulty Paying for Meds: No Currently Unemployed: No Education: Bachelor's Degree Difficulty w/ Childcare or Family Care: No Gender identity (if verbalized by the patient): Female Spiritual care concerns: No Comments At the time of my signature, I reviewed and agree with the nursing past medical, surgical, social, and family history. There is no relevant family history pertinent to the patient complaint. Exam Narrative: General: Well-developed, well nourished, in no apparent distress Head: Normocephalic, atraumatic Eyes: Pupils equally round and reactive to light bilaterally, EOM intact, sclera and conjunctive clear, no discharge, lids normal Ears: TMs intact and congested, ear canals clear, no drainage, grossly hearing normal. Nose: Nares patent, clear nasal discharge, no inflammation, no sinus tenderness. Mouth: Oral pharynx without lesions or masses, good dentition, MMM. Neck: Supple, trachea midline, no enlargement of anterior or posterior cervical nodes, no thyroid masses or goiter palpable. Cardio: Regular rate and rhythm, s1 and s2 normal, no murmur appreciated. Resp: Clear to auscultation bilaterally, no rhonchi, rales, wheezing or rubs Course Course Emergency Course: Portions of this record may have been created with voice recognition software. Level of Care: Express Care Visit Vital Signs Vital signs: Vital signs reviewed MDM - URI/Sore Throat MDM Narrative Medical decision making narrative: At the time of visit patient is resting comfortably on the exam table. Patient appears to be nontoxic. Labs: Influenza testing was positive in the clinic today. Plan: Patient has influenza A. Prescription for Tamiflu was sent to the pharmacy. Risk and benefits of this medication was discussed with the patient she voiced understanding would like this medication prescribed. Supportive measures were discussed with the patient and they voiced understanding discharge instructions and agrees to treatment plan. Return precautions reviewed Differential Diagnosis Differential diagnosis: Likely upper respiratory infection, otitis media, sinusitis, viral infection, bronchitis, influenza, pharyngitis and other (COVID) Discharge Plan Discharge Clinical Impression: Influenza A Patient Disposition: Home, Self-Care Condition: Stable Instructions: Antibiotic Form, Influenza (ED) Additional Instructions: Influenza A testing is positive. Take prescription medications only as prescribed-Tamiflu Increase fluids and stay well hydrated Tylenol/motrin for pain/fever Flonase and OTC antihistamines as directed Vicks vapor rub to open sinuses Sinus rinses for congestion Cepacol spray, cough drops, throat lozenges, warm tea with honey/lemon, gargle salt water to soothe throat BRAT diet for diarrhea Clear liquids x 24 hours then advance as tolerated for nausea/vomiting Go to the ED if you develop a worsening in your condition- high fever not controlled by Tylenol or Motrin, dehydration, weakness, lethargy, shortness of breath, or chest pain. Follow up with your PCP in 3-5 days if symptoms persist. Patient Language: [place] Prescriptions: New oseltamivir [Tamiflu] 75 mg capsule 75 mg PO Q12H 5 Days Qty: 10 0RF Follow-up/Referrals: Ricardo Horowitz MD [Primary Care Provider] - Stand Alone Forms: Work/School Release IP Time of Disposition: 09:45 Quality NIHSS Nursing Documentation ED NIHSS nursing documentation: reviewed/agree
[2024-12-02 09:14] VITALS: BP 145/87; PULSE 103; RESP 18; TEMP 37.3; O2SAT 97
--- OUTSIDE RECORDS SUMMARY | 2024-12-02 09:47 | XMS_ITS | Clinical Summary ---
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
--- OUTSIDE RECORDS SUMMARY | 2024-12-02 09:47 | XMS_ITS | Clinical Summary ---
Author Organization [email or web address] Address [address] [place] [address] Care Team Providers Care Family Law Legal Assistant Name Role Phone Ricardo Horowitz MD Primary Care Provider [phone] Source Comments [email or web address],non-owned Affiliates and Associated Physician Practices is amultiple site organization consisting of ambulatory clinics and hospital sitesin [place], [place], [place] and [place]. This disclosure is being madepursuant to the Care Everywhere program and may not contain all information available regarding this patient. Last updated 18.[email or web address] Allergies No known active allergies Medications * [...] 77 07/11/2021 11:04 AM CDT Temperature 36.8 C (98.2 F) 07/11/2021 11:04 AM CDT Respiratory Rate 18 07/11/2021 11:04 AM CDT [...] Office Visit [facility] - Dermatology [address] [place] [address], [place] [address] Misael Durand MD [address] [place] [address] DEPT OF DERMATOLOGY [address] [place] [phone] Health Maintenance Due Date Last Done Comments [...] age to complete this topic Care Teams Family Law Legal Assistant Relationship Specialty Start Date End Date Ricardo Horowitz MD [address] [place] [address] PCP - General Family Medicine 02/17/24
--- OUTSIDE RECORDS SUMMARY | 2024-12-02 09:47 | XMS_ITS | Referral Summary ---
Author Organization [facility] Address [address] [facility] [place] [address] Care Team Providers Care Sports Nutritionist Name Role Phone Ricardo Horowitz MD Primary Care Provider [phone] Source Comments [facility],non-owned Affiliates and Associated Physician Practices is amultiple site organization consisting of ambulatory clinics and hospital sitesin [place], [place], [place] and [place]. This disclosure is being madepursuant to the Care Everywhere program and may not contain all information available regarding this patient. Last updated 18.[facility] Encounters Date Type Department Care Team Description [...] Office Visit [facility] - Dermatology [address] [place] [address], [facility] [place] [address] Misael Durand MD [address] [place] [address] DEPT OF DERMATOLOGY [place] [address] Care Teams Sports Nutritionist Relationship Specialty Start Date End Date Ricardo Horowitz MD [address] [place] [id number] PCP - General Family Medicine 02/17/24
--- OUTSIDE RECORDS SUMMARY | 2024-12-02 09:47 | XMS_ITS | Clinical Summary ---
Author Organization [facility] Address [address] [place] [address] Care Team Providers Care Pump House Engineer Name Role Phone Elroy George MD Primary Care Provider [phone] Allergies No known active allergies Medications vitamin [...] 100 01/30/2023 4:00 PM CDT Temperature 36.5 C (97.7 F) 01/30/2023 4:00 PM CDT Respiratory Rate 16 01/30/2023 4:00 PM CDT [...] - 19+ 3-dose series) 2017 COVID-19 Vaccine ( - 2023-2 5 season) 2024 06/11/2021, 05/02/2021 Influenza Adult [...] VE NON-REACTI VE 01/30/2023 7:19 PM CDT [facility] HEP B CORE IGM NON-REACTI VE NON-REACTI VE 01/30/2023 7:49 PM CDT [facility] HAV IGM NON-REACTI VE NON-REACTI VE 01/30/2023 7:50 PM CDT [facility] HEPATITIS C AB NON-REACTI VE NON-REACTI VE 01/30/2023 7:48 PM CDT [facility] 01/30/2023 4:14 PM CDT Roger Humphreys MD LABORATORY Final Re sult [facility] [address] [place] [address], from Last 3 Months or Most Recently Relevant to Health Maintenance Insurance [employer] Care Teams Pump House Engineer Relationship Specialty Start Date End Date Elroy George MD [facility] [address] [facility] [address] [place] [address] PCP - General UNKNOWN PHYSICIAN SPECIALTY 01/30/23
--- OUTSIDE RECORDS SUMMARY | 2024-12-02 09:47 | XMS_ITS | Continuity of Care Document ---
Author Organization [facility] Address [address] [place] [address] Phone Care Team Providers Care Exhibit Display Representative Name Role Phone Ricardo Horowitz MD Unavailable [...] Diagnoses Date Provider Providers Copied on Encounter [facility], [facility] [place], [address], [place] tel:[phone] [facility] No Information Carlos Manuel Silva. [address], [place], [place], [address] , [place]. tel:[phone] OFFICE/OUTPA TIENT VISIT, EST [facility], [address], [place], [place], [address], [place] tel:[phone] [facility] itching (chief complaint) skin (chief complaint) sTD (chief complaint) Athlete's footNevus, non-neoplasticLeuko rrhea NOS 4 Carlos Manuel Silva. [address], [place], [place], [address] , [place]. tel:[phone] OFFICE/OUTPA TIENT VISIT, EST [facility], [address], [place], [place], [address], [place] tel:[phone] [facility] itching1 (chief complaint) obesity1 (chief complaint) Abnormal weight gainAthlete's foot 4 Carlos Manuel Silva. [address], [place], [place], [address] , [place]. [phone] PREV VISIT, EST, AGE 18-39 [facility], [address], [place], [place], [address], [place] tel:[phone] [facility] physical (chief complaint) Encounter for general adult medical examination without abnormal findings 4 Carlos Manuel Silva. [address], [place], [place], [address] , [place]. tel:[phone] OFFICE/OUTPA TIENT VISIT, EST [facility], [address], [place], [place], [address], [place] tel:[phone] [facility] weight gain1 (chief complaint) headache1 (chief complaint) STD (chief complaint) face (chief complaint) Encounter for STD screeningAbnormal weight gainHeadacheNevus, non-neoplastic 4 Carlos Manuel Silva. [address], [place], [place], [address] , [place]. tel:[phone] PREV VISIT, EST, AGE 18-39 [facility], [address], [place], [place], [address], [place] tel:[phone] [facility] physical1 (chief complaint) Encounter for general adult medical examination without abnormal findings 3 Carlos Manuel Rodrigues [address], [place], [place], [address] , [place]. tel:[phone] OFFICE/OUTPA TIENT VISIT, EST [facility], [address], [place], [place], [address], [place] tel:[phone] [facility] HTN (chief complaint) high T (chief complaint) obesity1 (chief complaint) Abnormal weight gainEssential (primary) hypertensionAndroge n excess 2 Carlos Manuel Rodrigues [address], [place], [place], [address] , [place]. tel: [phone] PREV VISIT, EST, AGE 18-39 [facility], [address], [place], [place], [address], [place] tel:[phone] [facility] physical (chief complaint) Encounter for general adult medical examination without abnormal findings 2 Carlos Manuel Rodrigues [address], [place], [place], [address] , [place]. tel:[phone] OFFICE/OUTPA TIENT VISIT, EST [facility], [address], [place], [place], [address], [place] tel:[phone] [facility] breast1 (chief complaint) abd pain1 (chief complaint) STD (chief complaint) Encounter for STD screeningBody mass index [BMI]40.0-44.9, adultAbdominal painHypertrophy of breastLumbago 0 1 Carlos Manuel Rodrigues [address], [place], [place], [address] , [place]. tel:[phone] PREV VISIT, EST, AGE 18-39 [facility], [address], [place], [place], [address], [place] tel:[phone] [facility] physical (chief complaint) Encounter for general adult medical examination without abnormal findings 0 Carlos Manuel Silva. [address], [place], [place], [address] , [place]. tel:[phone] OFFICE/OUTPA TIENT VISIT, EST [facility], [address], [place], [place], [address], [place] tel:[phone] [facility] STD (chief complaint) Chlamydial vulvovaginitis 9 Carlos Manuel Silva. [address], [place], [place], [address] , [place]. [phone] Referring Provider: Kely Candelaria [address] [facility] [address], [place], [place], [address]. tel:[phone] PREV VISIT, NEW, AGE 18-39 [facility], [address], [place], [place], [address], [place] tel:[phone] [facility] PHysical (chief complaint) Encounter for general adult medical exam w abnormal findingsRashFollicu lar cyst of skinChlamydial vulvovaginitis 8 Carlos Manuel Silva. [address], [place], [place], [address] , [place]. tel:[phone] Referring Provider: [address], [place], [place], [address]. tel:[phone] Family History Family Member Type Diagnosis Age [...] To: Nicci Hoskins [address] [place], [place], [phone] Ordered: Referrals: Allopathic & Osteopathic Physicians : Surgery. Nicci Hoskins. Evaluate and treat ordered Referral Ordered: Richard Domingo -Allopathic & Osteopathic Physicians : Plastic Surgery (related to Hypertrophy of breast) ordered Referral Referred To: Richard Domingo [address] [place], [place], [phone] Ordered: Referrals: Allopathic & Osteopathic Physicians : Plastic Surgery. Richard Domingo. Evaluate and treat ordered Referral Ordered: NUC MED HIDA (HEPATOBILIARY) SCAN ordered Referral Ordered: Nataliia Paula -Allopathic & Osteopathic Physicians : Dermatology (related to Rash) ordered Referral Referred To: Nataliia Paula [address] [place], [place] [phone] Ordered: Referrals: Allopathic & Osteopathic Physicians : [...] physical. 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 [...]
--- OUTSIDE RECORDS SUMMARY | 2024-12-02 09:47 | XMS_ITS | Patient Health Summary ---
Author Organization [facility] [employer] Address [address] [place] [address] Care Team Providers Care Burrer Operator Name Role Phone Ricardo Horowitz MD Primary Care Provider [phone] [facility],non-owned Affiliates and Associated Physician Practices is amultiple site organization consisting of ambulatory clinics and hospital sitesin [place], [place], [place] and [place]. This disclosure is being madepursuant to the Care Everywhere program and may not contain all information available regarding this patient. Last updated 18.[facility] Allergies No known active allergies Medications * [...] 47.22 07/11/2021 11:04 AM CDT Care Teams Burrer Operator Relationship Specialty Start Date End Date Ricardo Horowitz MD [address] [place] [address] PCP - General Family Medicine 02/17/24
--- OUTSIDE RECORDS SUMMARY | 2024-12-02 09:48 | XMS_ITS | Continuity of Care Document ---
Author Organization [facility] Address [address] [place] [address] Phone Care Team Providers Care Razor Grinder Name Role Phone Ricardo Horowitz MD Unavailable [...] Copied on Encounter [facility], [facility] [place], [address], [place] tel:[phone] [facility] No Information Carlos Manuel Silva. [address], [place], [place], [address] , [place]. tel:[phone] OFFICE/OUTPA TIENT VISIT, EST [facility], [address], [place], [place], [address], [place] tel:[phone] [facility] itching (chief complaint) skin (chief complaint) sTD (chief complaint) Athlete's footNevus, non-neoplasticLeuko rrhea NOS 4 Carlos Manuel Silva. [address], [place], [place], [address] , [place]. tel:[phone] OFFICE/OUTPA TIENT VISIT, EST [facility], [address], [place], [place], [address], [place] tel:[phone] [facility] itching1 (chief complaint) obesity1 (chief complaint) Abnormal weight gainAthlete's foot 4 Carlos Manuel Silva. [address], [place], [place], [address] , [place]. [phone] PREV VISIT, EST, AGE 18-39 [facility], [address], [place], [place], [address], [place] tel:[phone] [facility] physical (chief complaint) Encounter for general adult medical examination without abnormal findings 4 Carlos Manuel Silva. [address], [place], [place], [address] , [place]. tel:[phone] OFFICE/OUTPA TIENT VISIT, EST [facility], [address], [place], [place], [address], [place] tel:[phone] [facility] weight gain1 (chief complaint) headache1 (chief complaint) STD (chief complaint) face (chief complaint) Encounter for STD screeningAbnormal weight gainHeadacheNevus, non-neoplastic 4 Carlos Manuel Silva. [address], [place], [place], [address] , [place]. tel:[phone] PREV VISIT, EST, AGE 18-39 [facility], [address], [place], [place], [address], [place] tel:[phone] [facility] physical1 (chief complaint) Encounter for general adult medical examination without abnormal findings 3 Carlos Manuel Rodrigues [address], [place], [place], [address] , [place]. tel:[phone] OFFICE/OUTPA TIENT VISIT, EST [facility], [address], [place], [place], [address], [place] tel:[phone] [facility] HTN (chief complaint) high T (chief complaint) obesity1 (chief complaint) Abnormal weight gainEssential (primary) hypertensionAndroge n excess 2 Carlos Manuel Rodrigues [address], [place], [place], [address] , [place]. tel: [phone] PREV VISIT, EST, AGE 18-39 [facility], [address], [place], [place], [address], [place] tel:[phone] [facility] physical (chief complaint) Encounter for general adult medical examination without abnormal findings 2 Carlos Manuel Rodrigues [address], [place], [place], [address] , [place]. tel:[phone] OFFICE/OUTPA TIENT VISIT, EST [facility], [address], [place], [place], [address], [place] tel:[phone] [facility] breast1 (chief complaint) abd pain1 (chief complaint) STD (chief complaint) Encounter for STD screeningBody mass index [BMI]40.0-44.9, adultAbdominal painHypertrophy of breastLumbago 0 1 Carlos Manuel Rodrigues [address], [place], [place], [address] , [place]. tel:[phone] PREV VISIT, EST, AGE 18-39 [facility], [address], [place], [place], [address], [place] tel:[phone] [facility] physical (chief complaint) Encounter for general adult medical examination without abnormal findings 0 Carlos Manuel Silva. [address], [place], [place], [address] , [place]. tel:[phone] OFFICE/OUTPA TIENT VISIT, EST [facility], [address], [place], [place], [address], [place] tel:[phone] [facility] STD (chief complaint) Chlamydial vulvovaginitis 9 Carlos Manuel Silva. [address], [place], [place], [address] , [place]. [phone] Referring Provider: Kely Candelaria [address] [facility] [address], [place], [place], [address]. tel:[phone] PREV VISIT, NEW, AGE 18-39 [facility], [address], [place], [place], [address], [place] tel:[phone] [facility] PHysical (chief complaint) Encounter for general adult medical exam w abnormal findingsRashFollicu lar cyst of skinChlamydial vulvovaginitis 8 Carlos Manuel Silva. [address], [place], [place], [address] , [place]. tel:[phone] Referring Provider: [address], [place], [place], [address]. tel:[phone] Family History Family Member Type Diagnosis Age At Onset Mother Problem (finding) Seizure disorder Sister Problem (finding) Alive and well Father Problem (finding) schizophrenia Mother Problem (finding) Diabetes mellitus Payers Payer name Insurance type Covered constitution party ID Authoriza tion(s) No Information Social [...] To: Nicci Hoskins [address] [place], [place], [id number] Ordered: Referrals: Allopathic & Osteopathic Physicians : Surgery. Nicci Hoskins. Evaluate and treat ordered Referral Ordered: Richard Domingo -Allopathic & Osteopathic Physicians : Plastic Surgery (related to Hypertrophy of breast) ordered Referral Referred To: Richard Domingo [address] [place], [place], [phone] Ordered: Referrals: Allopathic & Osteopathic Physicians : Plastic Surgery. Richard Domingo. Evaluate and treat ordered Referral Ordered: NUC MED HIDA (HEPATOBILIARY) SCAN ordered Referral Ordered: Nataliia Paula -Allopathic & Osteopathic Physicians : Dermatology (related to Rash) ordered Referral Referred To: Nataliia Paula [address] [place], [place] [phone] Ordered: Referrals: Allopathic & Osteopathic Physicians : [...] physical. 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 [...]
[2024-12-02 10:06] LABS: EDINFLUASCREEN Positive (Negative); EDINFLUBSCREEN Negative (Negative)
== END 2024-12-02 09:48 | disposition home or self-care (01) ==
PROVIDERS: Emergency Provider Nurse Practitioner Family; PCP Emergency Medicine
DX: J10.1 Influenza due to other identified influenza virus with other respiratory manifestations (principal); E66.01 Morbid (severe) obesity due to excess calories; Z68.42 Body mass index [BMI] 45.0-49.9, adult
CPT/HCPCS: 87804; 99213; G0463

== ENCOUNTER 2025-02-17 11:11 | Outpatient (CLI) | payer OTHER, SELFPAY ==
--- NOTE | ~2025-02-17 | US_ITS ---
US thyroid INDICATION: Thyroid goiter TECHNIQUE: Real-time sonographic images of the thyroid gland were obtained. COMPARISON: No prior studies for comparison. FINDINGS: The right thyroid lobe measures 5.3 x 1.8 x 1.9 cm. The left thyroid lobe measures 5.4 x 1 .6 x 2.1 cm. There are multiple cysts in both lobes. In the right lobe there is a spongiform hypoecho ic mass which is wider than tall, ill-defined margins without internal echogenic foci measuring 1.3 x 1.4 x 0.8 cm, TR 2, not suspicious. Isthmus measures 3 mm. IMPRESSION: 1. Benign-appearing right thyroid mass measuring 1.4 cm, TR 2. Multiple benign bilateral thyroid cys ts are present. Reviewed, dictated and finalized at location B. IMPRESSION: 1. Benign-appearing right thyroid mass measuring 1.4 cm, TR 2. Multiple benign bilateral thyroid cysts are present.
== END 2025-02-17 11:12 | disposition home or self-care (01) ==
LOC: MICIMG 11:12
PROVIDERS: PCP Emergency Medicine; Visit Provider Obstetrics & Gynecology
DX: E04.2 Nontoxic multinodular goiter (principal)
CPT/HCPCS: 76536